=== PATIENT | male | born 1950 | race Caucasian/White ===

== ENCOUNTER 2025-02-22 06:06 | Day surgery (SDC) | payer MEDICARE, OTHER, SELFPAY ==
[2025-02-22] VITALS (16 sets, daily range): BP systolic 113–184; BP diastolic 54–91; BMI 31.7
[2025-02-22 06:56] LABS: Glucose - Point of Care 133 mg/dl (70-99)
[2025-02-22 07:14] LABS: Hematocrit 45.2 % (39.0-52.0); Hemoglobin 15.3 g/dL (13.0-18.0); Mean Corp Hgb Conc. 33.8 g/dL (33.0-37.0); Mean Corpuscular Volume 90.0 fL (80.0-94.0); Red Cell Dist. Width 13.2 % (11.5-14.5)
[2025-02-22 07:46] LABS: ALT (SGPT) 29 U/L (0-50); AST (SGOT) 30 U/L (17-59); Albumin 4.6 g/dl (3.5-5.0); Alkaline Phosphatase 38 U/L (38-126); Blood Urea Nitrogen 53 mg/dl (9-20); Calcium 9.5 mg/dl (8.4-10.2); Carbon Dioxide 22 mmol/L (22-30); Chloride 108 mmol/L (98-107); Estimated Creatinine Clearance 38 ml/min; Glucose 137 mg/dl (70-99); Potassium 4.8 mmol/L (3.5-5.1); Sodium 137 mmol/L (135-145); Total Protein 7.1 g/dl (6.3-8.2); eGFR 39.25
--- NOTE | 2025-02-22 08:20 | ITS.CL.CATH ---
[facility] - Catheterization
Cardiac Catheterization
Procedure Report:
LEFT AND RIGHT HEART CATHETERIZATION
Date of Procedure: February 19, 2025
Referring: Dr. Eddy Quiros
PROCEDURES:
1. Left heart catheterization, coronary angiogram.
2. Right heart catheterization
3. Moderate sedation.
INDICATION: Estrada is a 74-year-old gentleman with past medical history of hypertension, hyperlipidemia, type 2 diabetes mellitus, family history of coronary artery disease who has been having progressive dyspnea on exertion and an abnormal
outpatient stress test and is now being referred for a left and right heart catheterization.
ACCESS: 1. Right radial artery, 6Fr. sheath, under US guidance.
2. Right brachial vein, 6 Yoruba sheath
HEMODYNAMICS : (mmHg)
RA (m) : 12
RV (s/d,m) : 29/, 13
PA (s/d, m) : 29/, 18
PCWP (m) : 20
PA saturation: 76.4% on room air
AO saturation: 95.1% on room air
RA saturation: 72% on room air
Cardiac Output : 8.15 L/min
Cardiac Index : 3.64 L/min/m-2
Systemic vascular resistance: 775 dsc^(-5)
Pulmonary vascular resistance: 0.61 soto unit
AO (s/d) : 115/69
LVEDP : 20
No significant gradient across the aortic valve to suggest aortic stenosis.
CORONARY FINDINGS
Dominance: Left
Left Main Trunk (LMT): Large caliber vessel that gives rise to the LAD and LCx branches. There is eccentric 20 to 30% ostial left main stenosis.
Left Anterior Descending Artery (LAD): Large caliber vessel that gives off 1 major large caliber diagonal branches as it courses along the anterior inter-ventricular groove before wrapping around the cardiac apex. Ostial to proximal LAD has
diffuse tubular 75% stenosis at the level of the diagonal takeoff. D1 is a large-caliber vessel which has a ostial to proximal 90% stenosis. There is 40% stenosis in the midportion.
Left Circumflex Artery (LCx): Large caliber dominant vessel that gives off 1 major obtuse marginal (OM) branch, twomedium caliber left posterolateral branch and a medium caliber left PDA as it courses along the atrio-ventricular (AV) groove.
Ostial to proximal circumflex has a tubular 90% stenosis at the level of the takeoff of a large caliber OM 1 that is high rising. OM1 has ostial to proximal 50% stenosis. Distal left circumflex into RPDA has a 80% stenosis.
Right Coronary Artery (RCA): Small caliber nondominant vessel with a subtotal occlusion in the proximal portion and right to right collaterals.
SEDATION: 37 minutes of procedural sedation was utilized. IV Midazolam and IV Fentanyl were administered. An independent medical scientific liaison was present to assist with and help manage the patient's level of consciousness and physiologic status.
RADIATION SUMMARY: Fluoro Time (min): 4.5, Dose (mGy): 24.8, DAP (Gy.cm2) : 402.66
Closure Device: There were no immediate intra-procedural complications. The sheath was pulled in the laboratory cureman and a vascular-band applied to the right wrist for radial artery hemostasis using the patent hemostasis technique.
CONCLUSIONS
1. Left dominant coronary circulation.
2. Significant multivessel coronary artery disease.
3. Significantly elevated right and left-sided filling pressures with normal cardiac output in the setting of borderline low systemic vascular resistance.
RECOMMENDATIONS
1. Wean radial band per protocol. Monitor right hand perfusion and for bleeding from the radial site following removal of the vascular-band following trans-radial access.
2. Continue aggressive medical therapy and risk factor modification for secondary CAD prevention. Closely follow renal function as an outpatient.
3. Hydrate with normal saline to mitigate the risk of contrast-induced acute kidney injury.
4. CT surgical appointment as an outpatient for consideration for coronary artery bypass grafting.
Copy to: Dr. Eddy Quiros
Arabella Hyde MD, FACC, [facility]
[2025-02-22 08:35] LABS: Glucose - Point of Care 154 mg/dl (70-99)
[2025-02-22] MEDS: NSS 1000 IV (08:36)
[2025-02-22] MEDS: LASIX 20 MG IV (08:39)
[2025-02-22 08:42] LABS: Platelet Count 125 10^3/uL (130-400)
[2025-02-22] MEDS: NORVASC 2.5 MG PO (08:45)
--- NOTE | 2025-02-22 09:27 | PTCARENOTE ---
Tamra Rodríguez, CTNP, at pt bedside speaking to pt and pt's .
== END 2025-02-22 11:05 | disposition home or self-care (01) ==
LOC: CATH 06:06
PROVIDERS: ATTENDING PHYSICIAN Internal Medicine Interventional Cardiology; FAMILY PHYSICIAN Family Medicine; OTHER PHYSICIAN Internal Medicine Cardiovascular Disease
DX: I25.10 Atherosclerotic heart disease of native coronary artery without angina pectoris (principal); R06.09 Other forms of dyspnea; Z82.49 Family history of ischemic heart disease and other diseases of the circulatory system; E11.9 Type 2 diabetes mellitus without complications; E78.5 Hyperlipidemia, unspecified; I10 Essential (primary) hypertension; Z79.82 Long term (current) use of aspirin; Z79.899 Other long term (current) drug therapy; Z79.84 Long term (current) use of oral hypoglycemic drugs
CPT/HCPCS: 80053; 82962; 85027; 93460; 99152; 99153; C1894; Q9967

== ENCOUNTER 2025-03-21 04:52 | Inpatient (IN) | payer MEDICARE, OTHER, SELFPAY ==
[2025-03-13 09:06] VITALS: BMI 31.5
[2025-03-13 09:37] LABS: INR 0.99; PT 13.4 Sec (11.4-14.6)
[2025-03-13 09:39] LABS: Hematocrit 43.7 % (39.0-52.0); Hemoglobin 15.0 g/dL (13.0-18.0); Mean Corp Hgb Conc. 34.3 g/dL (33.0-37.0); Mean Corpuscular Volume 87.4 fL (80.0-94.0); Nucleated Red Blood Cells % 0 % (-); Platelet Count 158 10^3/uL (130-400); Red Cell Dist. Width 13.0 % (11.5-14.5)
[2025-03-13 09:47] LABS: Urine Character Clear (Clear)
[2025-03-13 10:03] LABS: ALT (SGPT) 48 U/L (0-50); AST (SGOT) 36 U/L (17-59); Albumin 5.2 g/dl (3.5-5.0); Alkaline Phosphatase 60 U/L (38-126); Blood Urea Nitrogen 35 mg/dl (9-20); Calcium 10.4 mg/dl (8.4-10.2); Carbon Dioxide 26 mmol/L (22-30); Chloride 99 mmol/L (98-107); Estimated Creatinine Clearance 42 ml/min; Glucose 274 mg/dl (70-99); Potassium 5.3 mmol/L (3.5-5.1); Sodium 136 mmol/L (135-145); Total Protein 8.1 g/dl (6.3-8.2); eGFR 42.04
[2025-03-13 10:37] LABS: Urine Red Blood Cell 0-2 /HPF (0-2); Urine Squamous Cell None seen /LPF (Few); Urine White Cell 0-2 /HPF (0-5)
[2025-03-13 11:50] LABS: Glycohemoglobin (HgbA1c) 7.0 % (4.0-5.6)
--- NOTE | 2025-03-13 16:30 | CM ---
spoke to pt in PAT, he is prev indep, lives with his in a 2 story home with no steps to enter. he denies any dmes. we discussed preop CABG teaching including sternal and driving restrictions, he has the CT Surgery educ book, soap and
instructions, he is agreeable to a f/u visit form the ct transitional care nurses after dc. plan is for cabg 03/16, cm role explained and all questions answered.
[2025-03-21] VITALS (11 sets, daily range): BP systolic 94–183; BP diastolic 64–91; BMI 31.6
[2025-03-21] MEDS: LOPRESSOR 25 MG PO (05:06)
[2025-03-21] MEDS: BACTROBAN 2% OINTMENT 1 APPLIC NASAL ×2 (05:06→22:10)
[2025-03-21] MEDS: PROTONIX 40 MG PO (05:06)
[2025-03-21] MEDS: MAGNESIUM OXIDE 400 MG PO (05:06)
--- NOTE | 2025-03-21 05:30 | PTCARENOTE ---
pt admitted into room 2265, VS and weight obtained. pt confirms 2 showers @ home and NPO since midnight. admission questions and med rec completed. clip prep and CHG cloth bath done. ABO drawn and sent. pre-op meds given.
--- NOTE | 2025-03-21 06:16 | W.CVOR.SURPR ---
CV[facility] Surgeon Immed Pre Op
-
I have examined this patient prior to performance of the scheduled procedure.
The patient's condition is unchanged from the time of the dictated/written History and
Physical and the patient is able to undergo the scheduled procedure.
CABG + LAAE
[2025-03-21 07:57] LABS: Urine Character Clear (Clear)
[2025-03-21 07:59] LABS: ACT+ - POC 107 Seconds (82-134)
--- NOTE | 2025-03-21 09:16 | CM ---
pt in OR today, cm to follow.
[2025-03-21 09:24] LABS: B.E. - POC -3.2 mmol/L; Glucose - POC 222 mg/dl (70-99); HCO3 - POC 23 mmol/L (21-28); Hematocrit - POC 34 % PCV (42-52); Hemodilution- POC Yes; Hemoglobin Calculated - POC 11.7; Ionized Calcium - POC 1.20 mmol/L (1.15-1.33); Lactate - POC 1.63 mmol/L (0.36-0.75); O2 Saturation %Calculated-POC 99.5 % (94-98); PCO2 - POC 42 mmHg (35-48); PO2 - POC 173 mmHg (83-108); POC Comment PRE; Potassium - POC 3.7 mmol/L (3.5-5.1); Sodium - POC 134 mmol/L (136-145); Specimen Type - POC Arterial; pH - POC 7.34 (7.35-7.45)
[2025-03-21 09:53] LABS: B.E. - POC 3.4 mmol/L; Glucose - POC 189 mg/dl (70-99); HCO3 - POC 29 mmol/L (21-28); Hematocrit - POC 32 % PCV (42-52); Hemodilution- POC Yes; Hemoglobin Calculated - POC 10.7; Ionized Calcium - POC 1.06 mmol/L (1.15-1.33); Lactate - POC 1.03 mmol/L (0.36-0.75); O2 Saturation %Calculated-POC 100.0 % (94-98); PCO2 - POC 45 mmHg (35-48); PO2 - POC 425 mmHg (83-108); POC Comment CPB; Potassium - POC 4.1 mmol/L (3.5-5.1); Sodium - POC 135 mmol/L (136-145); Specimen Type - POC Arterial; pH - POC 7.41 (7.35-7.45)
[2025-03-21 10:23] LABS: B.E. - POC 1.3 mmol/L; Glucose - POC 166 mg/dl (70-99); HCO3 - POC 25 mmol/L (21-28); Hematocrit - POC 28 % PCV (42-52); Hemodilution- POC Yes; Hemoglobin Calculated - POC 9.4; Ionized Calcium - POC 1.09 mmol/L (1.15-1.33); Lactate - POC 1.81 mmol/L (0.36-0.75); O2 Saturation %Calculated-POC 99.9 % (94-98); PCO2 - POC 37 mmHg (35-48); PO2 - POC 332 mmHg (83-108); POC Comment CPB; Potassium - POC 4.5 mmol/L (3.5-5.1); Sodium - POC 137 mmol/L (136-145); Specimen Type - POC Arterial; pH - POC 7.44 (7.35-7.45)
[2025-03-21 10:48] LABS: B.E. - POC 1.9 mmol/L; Glucose - POC 143 mg/dl (70-99); HCO3 - POC 26 mmol/L (21-28); Hematocrit - POC 27 % PCV (42-52); Hemodilution- POC Yes; Hemoglobin Calculated - POC 9.1; Ionized Calcium - POC 1.10 mmol/L (1.15-1.33); Lactate - POC 2.08 mmol/L (0.36-0.75); O2 Saturation %Calculated-POC 100.0 % (94-98); PCO2 - POC 35 mmHg (35-48); PO2 - POC 359 mmHg (83-108); POC Comment CPB; Potassium - POC 4.2 mmol/L (3.5-5.1); Sodium - POC 138 mmol/L (136-145); Specimen Type - POC Arterial; pH - POC 7.47 (7.35-7.45)
[2025-03-21 11:14] LABS: B.E. - POC 0.0 mmol/L; Glucose - POC 137 mg/dl (70-99); HCO3 - POC 25 mmol/L (21-28); Hematocrit - POC 29 % PCV (42-52); Hemodilution- POC Yes; Hemoglobin Calculated - POC 9.7; Ionized Calcium - POC 1.05 mmol/L (1.15-1.33); Lactate - POC 2.29 mmol/L (0.36-0.75); O2 Saturation %Calculated-POC 99.9 % (94-98); PCO2 - POC 39 mmHg (35-48); PO2 - POC 329 mmHg (83-108); POC Comment WARM; Potassium - POC 4.5 mmol/L (3.5-5.1); Sodium - POC 142 mmol/L (136-145); Specimen Type - POC Arterial; pH - POC 7.41 (7.35-7.45)
[2025-03-21 11:17] LABS: ACT+ - POC 131 Seconds (82-134)
[2025-03-21 11:50] LABS: B.E. - POC -1.1 mmol/L; Glucose - POC 119 mg/dl (70-99); HCO3 - POC 23 mmol/L (21-28); Hematocrit - POC 28 % PCV (42-52); Hemodilution- POC Yes; Hemoglobin Calculated - POC 9.6; Ionized Calcium - POC 1.29 mmol/L (1.15-1.33); Lactate - POC 2.55 mmol/L (0.36-0.75); O2 Saturation %Calculated-POC 99.9 % (94-98); PCO2 - POC 34 mmHg (35-48); PO2 - POC 336 mmHg (83-108); POC Comment POST; Potassium - POC 3.8 mmol/L (3.5-5.1); Sodium - POC 137 mmol/L (136-145); Specimen Type - POC Arterial; pH - POC 7.44 (7.35-7.45)
[2025-03-21 11:59] LABS: ACT+ - POC > 1003 Seconds (82-134)
[2025-03-21 11:59] LABS: ACT+ - POC > 1003 Seconds (82-134)
[2025-03-21 11:59] LABS: ACT+ - POC > 1003 Seconds (82-134)
[2025-03-21 11:59] LABS: ACT+ - POC > 1003 Seconds (82-134)
[2025-03-21 11:59] LABS: ACT+ - POC > 1003 Seconds (82-134)
--- NOTE | 2025-03-21 12:02 | W.PN.CT.SURG ---
CT Surgery Operative Note
-
CARDIAC SURGERY OPERATIVE REPORT
Preoperative Diagnosis: Multivessel Coronary Artery Disease with Exertional Angina
Postoperative Diagnosis: Same
Procedure(s) Performed:
1. Standard Sternotomy with Aortic and Right Atrial Cannulation
2. Internal Mammary Artery Harvesting, Left
3. Coronary artery bypass grafting x 5 (In situ BANKS to LAD, Ao to RSVG to Diagonal, Ao to RSVG to OM1, and Ao to RSVG to OM2/LPL seq to LPDA)
4. Endoscopic vein harvesting of RLE
5. Transesophageal echocardiography
6. Placement of Temporary Ventricular Pacing Wires
7. Left atrial appendage exclusion [35 mm clip]
Date of Surgery: 03/21/2025
Comorbidities:
1. Multivessel coronary artery disease with exertional angina
2. CKD stage IIIa
3. Hypertension
4. Hyperlipidemia
5. Gout
Attending Surgeon: Berlin Pollard MD, MS
Assistants: Ilda Rowan PA-C (present and necessary to engineer second assistant, endoscopic vein harvest, retraction, suction, exposure, suture management, and wound closure under my direction), Kayla Alcantar MD (did portions of the distal and proximal
anastomoses)
Anesthesiology: Gurwinder Noel MD and Emerita Urbina CRNA
Scrub and Circulating RNs: Armani Joel RN, Javon Reyes RN
Vice President Financial: Lisa Mendoza CCP
Anesthesia: GETA
EBL: per perfusion records
Products: None
CPB Time: 99 minutes
Aortic Cross Clamp Time: 88 minutes
Indication(s) for Procedures: This is a 74-year-old male who has been experiencing worsening shortness of breath on exertion likely is angina equivalent. He had a left heart cath after having an abnormal stress test that demonstrated significant
multivessel coronary disease. Given the disease pattern and his symptoms, he was offered surgical revascularization as first-line treatment. Due to his elevated [id number] score, his left atrial appendage will also be ligated at time of surgery.
Conduit(s) Quality:
BANKS -excellent, skeletonized
RSVG -good, there were some minor varicosities and a small portion that was really thickened and inflamed, this was excluded
Target(s) Quality:
LPDA -small size vessel, did a 1.5 mm probe, but overall had decent flow approximately 20 to 30 cc at a pressure of 80 mmHg. This was done as part of a sequential graft to the LPL branch. Flow down this graft was excellent, flow probe assessment
down this graft was 27 cc a minute mean with a pulse index of 5.5
OM1 -this was a large sized vessel that counted a 2 mm probe, the mean flow across this graft here was 21 cc a minute with a pulse index of 3.5
Diagonal, this is also a very large target, short piece of vein was used here, the mean flow down the graft was 15 cc a minute with a pulse index of 4.5
LAD -very large target that easily accommodated 2.0 mm probe. The mean flow down the graft from the BANKS was 30 cc a minute with a pulse index of 2.4, there is also excellent visual flow in the LAD territory upon removal of the bulldog clamp
Findings: His left ventricular ejection fraction preoperatively was normal at 60 to 65% with no significant regional wall motion abnormalities. Following surgery his EF remained the same at 60-65 with no new regional wall motion abnormalities. The
BANKS was harvested in a skeletonized fashion. Following bypass grafting, test dose cardioplegia was given down each distal and confirmed patency and hemostasis. Each distal was probed both proximally and distally to confirm disease and patency,
respectively. The left atrial appendage was sized with 35 mm clip and found to be totally occlusive postoperatively. There was no debris or thrombus in the left atrial appendage prior to clipping.
Description of Procedure: The patient was taken to the operating room. Their identity and procedure to be performed were verified and they were positioned supine on the operating table. Induction via general anesthesia with endotracheal intubation
was performed and central venous access and arterial monitoring were inserted. A preoperative transesophageal echocardiogram was performed to assess cardiac function and valvular function. The patient was then prepped and draped from chin to feet in
a sterile fashion. A preoperative time-out was performed with all members of the team present. A midline chest incision was performed along with median sternotomy. Simultaneous endoscopic access of the right lower extremity for saphenous vein
harvest was obtained along with administration of an initial 5,000 units of IV heparin. A RulTract sternal retractor was positioned to exposure the left internal mammary bed. The mammary was harvested and found to have good flow. A bulldog clamp was
applied to the distal end of the mammary after dividing it. It was wrapped in a papaverine soaked RayTec and replaced back into the left hemithorax. The RulTract was exchanged for a median sternal retractor. The innominate vein was isolated. Full
heparinization was given (a total of 50,000 units). We created a pericardial well. The aortic cannulation site was chosen where it was soft, pliable, and free of calcium. Cannulation was performed with an arterial cannula in the ascending aorta and
a triple-stage venous cannula through the right atrial appendage. The arterial cannula line had an appropriate bounce and correlating pressures with test dosing. Next, a root vent/antegrade cannula was inserted into the ascending aorta. The ACT was
confirmed to be over 400 and retrograde autologous priming was performed before commencing cardiopulmonary bypass. The pulmonary artery was away from the aorta to facilitate a clamp site. The aortic cross-clamp was placed after decreasing
the flow on the bypass and mean arterial pressure. A total of 1.2L initial dose of antegrade Del-Nido cardioplegia solution was given and planned for re-dosing every 75 minutes as necessary. There was rapid electro-mechanical arrest of the heart at
400 cc of cardioplegia. The left ventricle was observed for distention on echocardiogram and manual palpation. Cold slush was placed into a sponge and topically on the RV while we systemically cooled to 34 degrees centigrade. Once the heart was
fully arrested was rotated medially and the left atrial appendage was ligated with a 35 mm clip.
I positioned the heart to expose the left posterior descending artery. A menominee blade was used to expose the coronary and perform the arteriotomy. Coronary Stafford scissors were used to enlarge the incision. The saphenous vein was trimmed and beveled
to an appropriate size. The distal anastomosis was performed using 7-0 prolene in an end-to-side fashion. Antegrade cardioplegia was administered into the graft. Appropriate hemostasis and flow were confirmed. I then laid this graft in order to
accommodate a sequential to either an OM2 or LPL. The underbelly of the vein graft was incised and enlarged with Stafford scissors. The distal target was prepared in a similar fashion using a Garfield blade. A [id number] anastomosis was then created
with 7-0 Prolene in a running fashion. The distal end of the graft was then occluded with a bulldog and test dose of antegrade was given down the graft into the LPL branch. This had excellent flow and hemostasis. The graft was measured for length
to the aorta and cut. A suitable site on the first obtuse marginal was chosen. We dissected and prepared the distal target in a similar fashion. An end-to-side anastomosis was created with a 7-0 prolene. Antegrade cardioplegia was administered into
the graft. Appropriate hemostasis and flow were confirmed. The graft was measured for length to the aorta and cut. Next the first diagonal vessel was identified and prepared in a similar fashion. A short segment of vein graft was used, the distal
target was prepared in a similar fashion and a end-to-side anastomosis was created 7-0 Prolene. Using the patient's blood drawn from the bypass lines, testing the graft was given with an olive tip and found to have good hemostasis and flow. A
suitable target on the mid left anterior descending was identified. We dissected and prepared the distal target in a similar fashion. We retrieved the BANKS from the chest and created a pericardial opening while being cognizant of the phrenic nerve
to facilitate the course of the mammary. The distal end of the mammary was prepped and beveled to size. We verified orientation and length of the LINDA and found brisk flow. An end-to-side anastomosis was created with a 7-0 prolene. We temporarily
released the bulldog clamp on the mammary to inspect flow. Perfusion to the LAD territory was visualized and hemostasis was confirmed. The bull clamp was replaced on the mammary. The heart was filled and the root was distended with antegrade
cardioplegia to make final assessment of graft length and orientation. We created 3 aortotomies using a #11 blade then a 4.0mm aortic punch. The proximal anastomoses were created in an end-to-side fashion using 6-0 prolene. At the the same time, we
re-warmed to 36.5 degrees centigrade. The bulldog clamp was removed from the mammary. Temporary bipolar ventricular pacing wires were placed on the base of the right ventricle. The patient was placed in a Trendelenburg position and flows on bypass
were lowered. The aortic cross clamp was removed and flows were slowly brought back up. A 30-gauge needle was used to de-air the vein grafts. All bypass grafts were inspected and were free from kinking or twisting. The distal and proximal
anastomoses appeared hemostatic. Once transesophageal echocardiography appeared satisfactory for de-airing, the flows were temporarily lowered for root vent removal. After verifying acceptable parameters, we initiated weaning from cardiopulmonary
bypass. Once we were off cardiopulmonary bypass, the venous cannula was clamped and removed. A test dose of protamine was administered and the patient was monitored for any adverse reaction before resuming protamine. Once half of the protamine dose
was delivered, pump suckers were turned off and the systolic blood pressure was lowered for aortic decannulation. The aortic cannula was removed and pursestrings were tied down. All cannulation sites were oversewn with a 4-0 prolene. The mammary bed
was inspected and hemostasis was confirmed. Once the mediastinum was hemostatic, 19Fr Raúl drain was placed in the left pleural cavity and two 24Fr Raúl drains were placed within the pericardium. The sternum was approximated with 4 #7 single and 3
#8 double stainless steel wires. Fascia was approximated with #1 vicryl suture. The subcutaneous, dermis and epidermis were closed in layers in a running fashion. The skin wound was cleansed and dressed.
All instrument, sponge, and needle counts were confirmed to be correct x 2 at the end of the operation. The patient was transferred to the cardiac intensive care unit in critical but stable condition.
I, Dr. Berlin Pollard, was present, scrubbed for, and performed all critical elements of this procedure.
Berlin Pollard MD, MS
Cardiothoracic Surgeon
[facility]
This operative dictation was created using the leaselock dictation system. Please excuse any grammatical, typographical, or 'sound alike' errors
--- NOTE | 2025-03-21 12:20 | CON.INTV ---
Consultation
Consultation Request
Date/Time Consultation Requested: 03/21/2025 - 112
Date/Time Consultation Performed: 03/21/2025 - 114
Requesting Provider: Claire Singh NP
Performing Provider: Dr. Desir
Reason for Consultation: s/p CABG + ELAA
Medical History
-
Chief Complaint: Elective CABG
History of Present Illness:
74-year-old male with a past medical history of multivessel CAD, hypertension, hyperlipidemia, gout and CKD who presents for elective CABG. Patient known to the CT surgery service with last visit on 03/12/[address] Pollard. Patient's been
experiencing worsening shortness of breath and underwent a left heart catheterization on 02/22/2025 after an abnormal outpatient stress test. This showed multivessel CAD. Surgical revascularization was recommended and he consented to this
procedure. Today, patient underwent CABG x 5 (In situ BANKS to LAD, Ao to RSVG to Diagonal, Ao to RSVG to OM1, and Ao to RSVG to OM2/LPL seq to LPDA) with a left atrial appendage exclusion with 35mm clip. There were no immediate complications and
he was transferred to the CVICU postoperatively for further care. [employer] services now consulted for additional management/recommendations.
When I saw the patient he was resting in bed, intubated on SIMV at 12/600/40%/5 with PIP 23 cmH2O, VTe 556 cc and breathing at 12 breaths/min. Heart rate currently 70, BP via A-line 121/76, BP via NIBP: 119/81 and saturating 98%. He has
mediastinal chest tubes x 2+ left pleural chest tube x 1. Currently on insulin drip at 1.7 units/hr.
PMHx: Hypertension, hyperlipidemia, kidney disease, gout, multivessel CAD
PSHx: Mohs surgery, cardiac cath
Past Medical History
Past Medical History: Other (above as per HPI)
Past Surgical History: Other (above as per HPI)
Social History
Tobacco: Non-smoker
Alcohol: Occasional (Socially)
Drug: None
Personal:
Living: With Family
Family History
Family History: CAD
Allergies / Home Medications
Allergies
Allergy/AdvReac Type Severity Reaction Status Date / Time
ampicillin Allergy Rash Verified 03/12/25 12:28
Home Medications
�Medication �Instructions �Recorded �Confirmed �Last Taken �Type
amlodipine 2.5 mg tablet 2.5 mg PO DAILY #30 tabs 02/22/25 03/21/25 03/13/25 Rx
aspirin 81 mg tablet,delayed 81 mg PO DAILY 02/22/25 03/21/25 03/20/25 History
release
atorvastatin 80 mg tablet (Lipitor) 80 mg PO QPM #30 tabs 02/22/25 03/21/25 03/20/25 Rx
cholecalciferol (vitamin D3) 25 25 mcg PO DAILY 02/22/25 03/21/25 03/13/25 History
mcg (1,000 unit) capsule (Vitamin
D3)
furosemide 20 mg tablet (Lasix) 20 mg PO DAILY #30 tabs 02/22/25 03/21/25 03/20/25 Rx
gabapentin 300 mg capsule 300 mg PO BID 02/22/25 03/21/25 03/20/25 History
glimepiride 1 mg tablet 1 mg PO BID 02/22/25 03/21/25 03/20/25 History
metoprolol succinate 25 mg 25 mg PO DAILY #0 tabs 02/22/25 03/21/25 03/20/25 Rx
tablet,extended release 24 hr
milk thistle 500 mg capsule 1,000 mg PO DAILY 02/22/25 03/21/25 03/13/25 History
nitroglycerin 0.4 mg sublingual 0.4 mg sublingual [id number] PRN 02/22/25 03/21/25 Unknown Rx
tablet chest pain #25 tabs
omeprazole 20 mg tablet,delayed 20 mg PO Q48H 02/22/25 03/21/25 03/20/25 History
release
Review of Systems
-
Unable to Obtain full review of systems at this time due to: Patient Intubation
Vitals / Labs / Diagnostic Testing
Vital Signs
Temp Pulse Resp BP Pulse Ox
98.2 F 75 18 117/66 98
03/21/25 17:03 03/21/25 17:00 03/21/25 17:03 03/21/25 17:00 03/21/25 17:03
Lab Data
03/21/25 15:57
03/21/25 12:18
Laboratory Results
03/21/25
12:18
PT 18.7 H
INR 1.50
APTT 33.0
pH 7.40
pCO2 37
pO2 187 H
HCO3 22.9
O2 Delivery Level
Diagnostic Testing:
Physical Exam
-
HEENT: Normocephalic, Anicteric and Other (ETT in place)
Cardiovascular: S1/S2 and Peripheral Edema (negative)
Respiratory: Wheeze (negative), Rales (negative), Rhonchi (negative), Non-Labored Respirations, Other (Mechanical breath sounds heard bilaterally) and Other (Left pleural chest tube x 1+ mediastinal chest tubes x 2)
GI: Soft, Non Distended, Non Tender and Normal Bowel Sounds
Neurology: Tremors (negative) and Other (Sedated)
Skin: Warm and Dry
General: Respiratory Distress (negative), Comfortable, Fever (negative) and Chills (negative)
Assessment
-
Assessment: 74-year-old male with a past medical history of multivessel CAD, hypertension, hyperlipidemia, gout and CKD who presents for elective CABG. Patient known to the CT surgery service with last visit on 03/12/[address] Pollard. Patient's
been experiencing worsening shortness of breath and underwent a left heart catheterization on 02/22/2025 after an abnormal outpatient stress test. This showed multivessel CAD. Surgical revascularization was recommended and he consented to this
procedure. On 03/21/2025, he underwent CABG x 5 (In situ BANKS to LAD, Ao to RSVG to Diagonal, Ao to RSVG to OM1, and Ao to RSVG to OM2/LPL seq to LPDA) with a left atrial appendage exclusion with 35mm clip. There were no immediate complications and
he was transferred to the CVICU postoperatively for further care. [employer] services now consulted for additional management/recommendations.
Chronic conditions EARLY INTERVENTION SPECIALIST: Hypertension, hyperlipidemia, kidney disease, gout, multivessel CAD
Impression:
#Multivessel CAD with exertional angina s/p CABG x 5 with left atrial appendage exclusion with 35mm clip (POD #0)
#Acute anemia due to above
#Acute thrombocytopenia due to above
#Hyperglycemia
#CKD stage IIIa
#Hypertension
#Gout
#Hyperlipidemia
Plan:
Ventilator settings reviewed
FiO2 will be weaned to maintain SpO2 >90-94%
Minute ventilation will be adjusted
Arterial blood gases will be monitored
Spontaneous breathing trial will be attempted with hopeful extubation after anesthesia/sedation wear off
prn nebulized bronchodilators - not currently bronchospastic
Pulmonary artery catheter parameters will be followed
Pressors/antihypertensive/inotropes/diuretics will be provided as needed
Maintain MAP>65
Replete electrolytes with K>4, Mg>2
Monitor chest tube output (left pleural chest tube x 1+ mediastinal chest tubes x 2)
Monitor hemoglobin
Monitor platelet count and coags
Transfuse blood products as needed to maintain Hb>7g/dL, plt>50k (given post-operative status)
CT surgery managing chest tubes
Monitor blood sugar to maintain euglycemia with goal BG 110-140
Insulin drip per protocol
Aspiration precautions
VAP prevention protocol
DVT prophylaxis
Early nutrition
Early mobilization
Critical care statement: A total of 42 minutes of critical care time was provided for this patient today. This includes management of ventilator, spontaneous breathing trial, arterial blood gases, pressors, of unstable vital signs, evaluation of the
patient at bedside, reviewing the patient's pertinent medical records including radiographs, microbiology, laboratory evaluations, and discussion with primary team and critical care nursing.
[2025-03-21 12:23] LABS: Glucose - Point of Care 128 mg/dl (70-99)
[2025-03-21] MEDS: LR 250 ML IV ×2 (12:30→17:56)
[2025-03-21 12:34] LABS: B.E. -1.6 mmol/L; HCO3 22.9 mmol/L (21-28); O2 Saturation % 99.7 % (94-98); PCO2 37 mmHg (35-48); PO2 187 mmHg (83-108); Potassium 4.1 mMOL/L (3.5-5.1); Sodium 133 mMOL/L (136-145)
--- NOTE | 2025-03-21 12:39 | PTCARENOTE ---
Received pt from [facility] at 1215; pt intubated and sedated; Pupils 2mm and reactive; NSR on monitor and VSS; Epicardial V wires in place and box turned off; RIJ Cordis/SLIC, Left wrist A-line and PIV x1 all lines leveled and zeroed; Levo, Precedex and
Insulin infusing see flow sheet for details; Lungs diminished; ETT 8.0 22 @ lip; SIMV 600/60%/12/5; CT x3 to -2o wall suction no air leak and no crepitus noted; hypoactive bowel sounds; Dukes catheter draining clear yellow urine; palpable radial
pulses and weak DP; no edema; all surgical sites C/D/I; see nursing documentation for further details.
Respiratory at bedside and FiO2 decreased to 40%.
[2025-03-21 12:42] LABS: APTT 33.0 Sec (23.4-35.0); INR 1.50; PT 18.7 Sec (11.4-14.6)
--- NOTE | 2025-03-21 12:52 | W.PN.UPDATE ---
Update Note
Progress Note Update
74-year-old male was electively admitted on 03/17/2025 for CABG due to exertional dyspnea, triple-vessel coronary disease with preserved EF.
IV fluids: 1000
Crystalloid:�
U.O.:� 525
Cell saver:� 225
Blood:� none
Wires:� V-wire
Drips: Insulin, Precedex �
�
NEURO: sedated, pupils +2mm B/L
RESP: #8OT @23cm> 500/60%/14/5. Lungs clear B/L. 2 mediastinal (0cc on arrival) and L pleural (30cc on arrival) chest tubes to -20cm suction. Sanguineous drainage
CV: RRR +S1, S2, no S3, no�rub, no murmur. Dermabond to median sternotomy. RIJ w/Slik
ABD: round, soft, no BS
EXT: no edema, +2/4 DP pulses B/L, no femoral bruit, RLE REID wrap intact; left radial A-line intact
: Dukes with clear yellow urine
�
A/P: POD #0 s/p CABG x 5 (BANKS to LAD, SVG to Diagonal, SVG to OM1, and SVG to OM2/LPL seq to LPDA), Left atrial appendage exclusion [35 mm clip]
Required [place] scope intubation due to limited cervical range of motion
ESTELA: report pending
- wean and extubate
- keep SBP 90-130mmHg
# CAD
- will require ASA, Plavix, statin, beta fermin
# CKD3b
- trend creatinine and U.O
- no NSAIDS
�
# acute surgical blood loss anemia-expected
- trend CBC
�
# T2DM (A1C 7.0)
- insulin infusion x 48h
- consult to diabetes nurse practitioner
- Chol lowering, 1800 tanya diabetic diet
�
# Lumbar spinal stenosis
- resume�home dosing for Gabapentin
# GERD
- change Omeprazole to Pantoprazole while on Clopidogrel
[2025-03-21 12:54] LABS: Hematocrit 30.9 % (39.0-52.0); Hemoglobin 11.0 g/dL (13.0-18.0); Platelet Count 90 10^3/uL (130-400)
[2025-03-21 12:57] LABS: Blood Urea Nitrogen 26 mg/dl (9-20); Estimated Creatinine Clearance 46 ml/min; Glucose 118 mg/dl (70-99); Magnesium 2.5 mg/dl (1.6-2.3)
[2025-03-21 12:59] LABS: Glucose - Point of Care 122 mg/dl (70-99)
--- NOTE | 2025-03-21 13:24 | W.PN.CARDCBS ---
Addendum entered and electronically signed by Santino Sandoval DO 03/21/25 17:58:
I saw and examined the patient.
The [employer]'s note was reviewed and I agree with the note.
Comment:
Plan:
Cont post op CT surgical care
Off pressors
Wean vent as per protocol
Reviewed with nursing.
Compensated cv status.
Original Note:
Today's Communication / Plan
-
continue post op care
in SR
Impression / Plan
-
Primary Marionette Performer: Dr. Eddy Quiros
Assessment:
Multivessel CAD status post CABGx5 In situ BANKS to LAD, Ao to RSVG to Diagonal, Ao to RSVG to OM1, and Ao to RSVG to OM2/LPL seq to LPDA, GENE clip 03/21/25
Hypertension
Hyperlipidemia
Type 2 diabetes
CKD stage IIIA
Gout
Family history of CAD
Echo 02/14/2025: Normal LV function, no significant valvular disease
Plan:
-s/p CABGx5 In situ BANKS to LAD, Ao to RSVG to Diagonal, Ao to RSVG to OM1, and Ao to RSVG to OM2/LPL seq to LPDA, GENE clip 03/21/25
-intubated, sedated
-off pressors. currently receiving IVF. BP stable
-EKG SR with NSSTS
-follow Cr post op, 1.5 03/21
-hgb 11, plts 90K. follow
-prior to admission was on toprol 25mg daily, norvasc 2.5mg daily, lasix 20mg daily. resume post op as able
-continue post op care
-OP follow up with Dr. Quiros upon DC
-d/w nursing, CT surgery SEARCH MARKETING COORDINATOR
Progress Note - Marionette Performer
Subjective
Date of Service: March 21, 2025
intubated, sedated
Objective
Labs:
03/21/25 12:18
Labs
Hgb 11.0 g/dL (13.0-18.0) L 03/21/25 12:18
Hct 30.9 % (39.0-52.0) L 03/21/25 12:18
Plt Count 90 10^3/uL (130-400) L 03/21/25 12:18
PT 18.7 Sec (11.4-14.6) H 03/21/25 12:18
INR 1.50 03/21/25 12:18
APTT 33.0 Sec (23.4-35.0) 03/21/25 12:18
Sodium 136 mmol/L (135-145) 03/13/25 08:57
Potassium 5.3 mmol/L (3.5-5.1) H 03/13/25 08:57
BUN 26 mg/dl (9-20) H 03/21/25 12:18
Creatinine 1.5 mg/dL (0.7-1.3) H 03/21/25 12:18
Glucose 118 mg/dl (70-99) H 03/21/25 12:18
Vital Signs and I&O:
Vital Signs
Temp Pulse Resp BP Pulse Ox
96.2 F L 71 12 113/77 99
03/21/25 13:00 03/21/25 12:56 03/21/25 13:00 03/21/25 12:56 03/21/25 13:00
Vital Signs
Temp Pulse Resp BP Pulse Ox
96.2 F L 71 12 113/77 99
03/21/25 13:00 03/21/25 12:56 03/21/25 13:00 03/21/25 12:56 03/21/25 13:00
Intake & Output
03/19/25 03/20/25 03/21/25 03/22/25
07:59 07:59 07:59 07:59
Intake Total 314.5 / 314.5
Output Total 270 / 270
Balance 44.5 / 44.5
Physical Exam
Physical Exam
GEN: No distress, intubated, sedated
HEENT: supple, anicteric, mmm, eomi
LUNGS: CTA B/L, no wheezes/rales
CV: Reg, S1/S2, no murmur
ABD: soft, ND
EXT: No cyanosis, clubbing, edema
NEURO: sedated
SKIN: Warm, pink, dry. No rash. Sternotomy incision c/d/i. CTs in place
[2025-03-21] MEDS: ANCEF 10 IV ×2 (13:27)
[2025-03-21] MEDS: NOVOLOG FLEXPEN SC ×3 (13:27→16:19)
[2025-03-21] MEDS: NEURONTIN PO ×2 (13:27→19:52)
[2025-03-21] MEDS: TYLENOL PO ×2 (13:28→22:18)
[2025-03-21] MEDS: NSS 500 IV (13:28)
[2025-03-21] MEDS: VITAMIN D3 (cholecalciferol) PO (13:28)
[2025-03-21 14:02] LABS: Glucose - Point of Care 157 mg/dl (70-99)
--- NOTE | 2025-03-21 14:45 | PTCARENOTE ---
CHG bath wipes completed; NSR on monitor and VSS; pt remain intubated and awakes briefly.
--- NOTE | 2025-03-21 14:49 | PN.DE.MGMTRT ---
Insulin Management
- -
03/21/2025: Diabetes Management Consult:
74 year old male with PMH: CAD with MVD, HTN, HLD, T2DM, Gout, CKD stage IIIA. Admitted for CT surgery due to MVD, now POD 0 s/p CABG x5.
Was taking Glimepiride 1mg BID and had been taking Metformin 500mg BID, but it was d/c 'd by PCP. States he has a working glucose monitor and has been testing his blood sugars daily in the morning. A1C 7.0, Cr 1.5, eGFR 44.02
Currently on glycemic protocol, sugars are stable w/o elevations 136-170 requiring 1.5-7 units of insulin/hr.
Cont insulin infusion postoperatively x48 hrs. Will start Farxiga 10 mg daily POD2. Hold Metformin, pt states PCP discontinued it due to CKD.
Discussed with Nurse. Will cont to follow
Diabetes History
- -
Type of Diabetes: 2 requiring insulin
Pre-Admission Diabetes Regimen
03/21/25
12:18
Creatinine 1.5 H
Lab Results
Hemoglobin A1c 7.0 % (4.0-5.6) H 03/13/25 08:57
Insulin Pump Settings
IP Diabetes Regimen
03/21/25 03/21/25 03/21/25
12:18 12:20 12:57
Glucose 118 H
POC Glucose 128 H 122 H
03/21/25
14:01
Glucose
POC Glucose 157 H
Meal type: Lunch
Patient Education
[2025-03-21 15:01] LABS: Glucose - Point of Care 172 mg/dl (70-99)
[2025-03-21] MEDS: OFIRMEV 100 IV ×2 (15:18→23:41)
--- NOTE | 2025-03-21 15:34 | PTCARENOTE ---
Respiratory at bedside and pt placed on CPAP.
[2025-03-21 16:00] LABS: Glucose - Point of Care 161 mg/dl (70-99)
--- NOTE | 2025-03-21 16:00 | PTCARENOTE ---
Pt drowsy, respiratory at bedside and pt placed back on SIMV.
[2025-03-21] MEDS: PACERONE PO ×2 (16:17→22:18)
[2025-03-21 16:20] LABS: Hematocrit 34.1 % (39.0-52.0); Hemoglobin 12.3 g/dL (13.0-18.0); Platelet Count 134 10^3/uL (130-400)
--- NOTE | 2025-03-21 16:31 | PTCARENOTE ---
Respiratory at bedside and Pt placed on CPAP.
[2025-03-21 16:52] LABS: B.E. - POC -0.5 mmol/L; Blood Urea Nitrogen - POC 24 mg/dl (3-120); Chloride - POC 108 mmol/L (96-111); Creatinine - POC 1.69 mg/dl (0.3-1.0); Glucose - POC 171 mg/dl (70-99); HCO3 - POC 22 mmol/L (21-28); Hematocrit - POC 34 % PCV (42-52); Hemodilution- POC No; Hemoglobin Calculated - POC 11.4; Ionized Calcium - POC 1.20 mmol/L (1.15-1.33); Lactate - POC 2.55 mmol/L (0.36-0.75); O2 Saturation %Calculated-POC 99.0 % (94-98); PCO2 - POC 30 mmHg (35-48); PO2 - POC 121 mmHg (83-108); Potassium - POC 3.5 mmol/L (3.5-5.1); Sodium - POC 141 mmol/L (136-145); Specimen Type - POC Arterial; pH - POC 7.48 (7.35-7.45)
--- NOTE | 2025-03-21 16:55 | RESPNOTE ---
patient extubated at this time without complication. 98% on 6L.
[2025-03-21] MEDS: ZOFRAN 4 MG IV (16:58)
--- NOTE | 2025-03-21 17:10 | PTCARENOTE ---
EPOC resulted and reviewed with CTNP; respiratory at bedside and pt extubated to 6LNC at 1655; NSR on monitor and VSS.
[2025-03-21] MEDS: LIPITOR PO (17:32)
[2025-03-21] MEDS: LOW STRENGTH ASPIRIN 81 MG PO (17:55)
[2025-03-21] MEDS: ANCEF 5 IV (19:04)
[2025-03-21] MEDS: ROXICODONE 2.5 MG PO (19:04)
[2025-03-21] MEDS: SENOKOT PO (19:52)
--- NOTE | 2025-03-21 19:55 | PTCARENOTE ---
pt received from previous rn, pt AAOx4, NSR per tele monitor HR 70s. Epicardial V wires in place and box turned off. VSS. +pulses. lung diminished. pox 100% on 6L NC. CTx3 set -20 cm suction no air leak/crepitus/tidaling. +bs, Dukes draining clear
yellow urine. all surgical sites intact. RIJ Cordis/SLIC, Left wrist A-line all lines leveled and zeroed. PIV infusing insulin per glycemic protocol. plan of care discussed and questions encouraged. see nursing documentation for further details.
[2025-03-21 20:35] LABS: Glucose - Point of Care 163 mg/dl (70-99)
[2025-03-21 20:35] LABS: Glucose - Point of Care 168 mg/dl (70-99)
[2025-03-21 20:57] LABS: Glucose - Point of Care 146 mg/dl (70-99)
[2025-03-21 22:05] LABS: Glucose - Point of Care 127 mg/dl (70-99)
--- NOTE | 2025-03-21 23:00 | PTCARENOTE ---
pt received from previous RN, walking ronds done. pt sleeping, VSS. NSR on monitor, HR 70s. SBP 110s. +peripheral pulses. epicardial V wires in place, pacer box off. heart tones clear. no edema noted. RIJ cordis and slic catheter intact w KVOs
infusing. CVP ~ 9. bilateral breath sounds present. POX 100% on 4LNC. CT x3 intact to -20 cm suction, drainage WNL, no air leak present. +BS. Insulin gtt infusing per glycemic protocol. hughes in place, draining CYU, UO adequate. PIV intact and
patent. all surgical sites stable. see worklist for full assessment, VS, and interventions.
[2025-03-21 23:45] LABS: Glucose - Point of Care 128 mg/dl (70-99)
[2025-03-22] VITALS (23 sets, daily range): BP systolic 93–141; BP diastolic 53–126; PULSE 81; O2SAT 96–97; BMI 32.4
[2025-03-22 01:14] LABS: Glucose - Point of Care 118 mg/dl (70-99)
--- NOTE | 2025-03-22 03:15 | PTCARENOTE ---
no acute changes in assessment. VSS. AAOx4. pt c/o sternal incision pain - see MAR for PRN medication administration. NSR on monitor, HR 80s. SBP 120s. POX 97% on 2LNC. CT output and UO WNL. Insulin gtt maintained per glycemic protocol. all surgical
sites stable. AM labs drawn and sent. EKG done.
[2025-03-22 03:17] LABS: Glucose - Point of Care 114 mg/dl (70-99)
[2025-03-22 03:23] LABS: Hematocrit 31.5 % (39.0-52.0); Hemoglobin 11.3 g/dL (13.0-18.0); Mean Corp Hgb Conc. 35.9 g/dL (33.0-37.0); Mean Corpuscular Volume 88.0 fL (80.0-94.0); Platelet Count 115 10^3/uL (130-400); Red Cell Dist. Width 13.1 % (11.5-14.5)
[2025-03-22] MEDS: ANCEF 5 IV ×2 (03:28→10:55)
[2025-03-22] MEDS: DILAUDID 0.5 MG IV (03:28)
[2025-03-22 03:53] LABS: Blood Urea Nitrogen 31 mg/dl (9-20); Calcium 8.7 mg/dl (8.4-10.2); Carbon Dioxide 23 mmol/L (22-30); Chloride 109 mmol/L (98-107); Estimated Creatinine Clearance 40 ml/min; Glucose 116 mg/dl (70-99); Magnesium 2.0 mg/dl (1.6-2.3); Potassium 4.4 mmol/L (3.5-5.1); Sodium 138 mmol/L (135-145); eGFR 42.04
[2025-03-22 05:05] LABS: Glucose - Point of Care 119 mg/dl (70-99)
[2025-03-22] MEDS: ZOFRAN 4 MG IV (05:21)
[2025-03-22] MEDS: TYLENOL PO (05:43)
[2025-03-22 06:13] LABS: Glucose - Point of Care 139 mg/dl (70-99)
[2025-03-22] MEDS: NOVOLIN R INSULIN INFUSION 100 IV (06:18)
[2025-03-22] MEDS: ROXICODONE 5 MG PO ×3 (06:46→23:25)
--- NOTE | 2025-03-22 06:49 | W.PN.CT ---
Today's Communication / Plan
-
-pod #1
-no issues overnight
-drips: insulin only
-CT outputs: 2 meds 80/160, L pleur 40/160 in 12/24 hrs
-delined
-keep Dukes for critical I/O (CKD)
-follow Cr - 1.7 today (1.5 on 03/21, 1.7-1.8 preop)
-continue current meds
-encourage IS, OOB
Assessment / Plan
-
- Mv-CAD with Exertional Angina- s/p CABG x 5 (In situ BANKS to LAD, Ao to RSVG to Diagonal, Ao to RSVG to OM1, and Ao to RSVG to OM2/LPL seq to LPDA); Left atrial appendage exclusion [35 mm clip] by Dr. Pollard on 03/21/25, pod #1
- Intraop ESTELA: LVEF preop was normal at 60 to 65% with no significant regional wma. Following surgery his EF remained the same at 60-65 with no new regional wall motion abnormalities. The left atrial appendage was sized with 35 mm clip and found to
be totally occlusive postoperatively.
- CKD stage IIIb (baseline Cr 1.7-1.8)
- Hypertension
- Hyperlipidemia
- DM II
- GERD
- Class 1 obesity (BMI 32)
- Gout
- DJD/lumbar spinal stenosis
- Acute postop blood loss anemia - stable, no transfusion
- Acute postop thrombocytopenia
- Acute postop atelectasis
- Acute postop hypovolemia with subsequent hypervolemia
- Suspected acute postop pericarditis/ + rub
Discussed patient care with: Nursing and Care Team
Subjective
-
Date of Service: March 22, 2025
Objective Data
-
Lab Results
03/22/25 03:13
03/22/25 03:13
PT 18.7 Sec (11.4-14.6) H 03/21/25 12:18
INR 1.50 03/21/25 12:18
APTT 33.0 Sec (23.4-35.0) 03/21/25 12:18
Vital Signs
Vital Signs
Temp Pulse Resp BP Pulse Ox
98.7 F 79 12 93/63 94
03/22/25 05:00 03/22/25 06:15 03/22/25 05:00 03/22/25 06:05 03/22/25 06:15
CT Intake/Output/Weight
03/21/25 03/21/25 03/22/25
06:59 18:59 06:59
Intake Total 680.0 / 1050.0 370.0 / 1050.0
Output Total 1010 / 1710 700 / 1710
Balance -330.0 / -660.0 -330.0 / -660.0
SaO2: 94
Physical Exam
-
General: Awake and AOx3
Cardiovascular: Regular rate & rhythm, No Murmurs and Rub
Respiratory: Decreased Breath Sounds
Sternum: Stable
Incision: Clean, Dry and Dressing Intact
Extremities: No Edema (1+ DPs b/l)
Abdomen: soft, nondistended, decreased bowel sounds
Data Reviewed
-
Lab Results: Results Reviewed
Medications: Active Meds Reviewed
Chest X-Ray: Report Reviewed and Image Reviewed
ECG: Report Reviewed and Image Reviewed
[2025-03-22 07:01] LABS: Glucose - Point of Care 120 mg/dl (70-99)
--- NOTE | 2025-03-22 07:16 | W.PN.ANS.POP ---
Anesthesia Post Operative
- Anesthesia Post Op Note
Vital Signs Stable-See Nursing Note: Yes
Airway Patent: Yes
Adequate Pain Control: Yes
Change in Mental Status: No
Current Postoperative Nausea & Vomiting: No (note n/v after extubation last night, feels fine now)
Anesthesia Complications: No
General Anesthetic Recall: No
Unplanned Admission: No
Post Op Hydration Adequate: Yes
--- NOTE | 2025-03-22 08:10 | W.PN.INTV ---
Today's Communication / Plan
Recommendations
Up OOB as tolerated
Continue insulin drip per protocol with goal BG 110�140
Cardiac rehab consult
Pain control
Encourage incentive spirometer q1hr while awake
Motorboat Mechanic Helper services will continue to follow along while patient remains in the CVICU
Assessment
-
Assessment: 74-year-old male with a past medical history of multivessel CAD, hypertension, hyperlipidemia, gout and CKD who presents for elective CABG. Patient known to the CT surgery service with last visit on 03/12/[address] Pollard. Patient's
been experiencing worsening shortness of breath and underwent a left heart catheterization on 02/22/2025 after an abnormal outpatient stress test. This showed multivessel CAD. Surgical revascularization was recommended and he consented to this
procedure. On 03/21/2025, he underwent CABG x 5 (In situ BANKS to LAD, Ao to RSVG to Diagonal, Ao to RSVG to OM1, and Ao to RSVG to OM2/LPL seq to LPDA) with a left atrial appendage exclusion with 35mm clip. There were no immediate complications and
he was transferred to the CVICU postoperatively for further care. Motorboat Mechanic Helper services now consulted for additional management/recommendations.
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
Impression:
#Multivessel CAD with exertional angina s/p CABG x 5 with left atrial appendage exclusion with 35mm clip (POD #1)
#Acute anemia due to above
#Acute thrombocytopenia due to above
#Hyperglycemia
#CKD stage IIIa
#Hypertension
#Gout
#Hyperlipidemia
Plan:
Patient successfully extubated to nasal cannula on evening of 03/21/2025, and is now breathing comfortably on room air and saturating 96-97%
Maintain SpO2 >90-94%
prn nebulized bronchodilators - not currently bronchospastic
Encouraged incentive spirometer use q1hr while awake
Pulmonary artery catheter parameters will be followed
Pressors/antihypertensive/inotropes/diuretics will be provided as needed
Maintain MAP>65
Replete electrolytes with K>4, Mg>2
Monitor chest tube output (left pleural chest tube x 1+ mediastinal chest tubes x 2 - pleural chest tube to be removed later this AM)
Monitor hemoglobin
Monitor platelet count and coags
Transfuse blood products as needed to maintain Hb>7g/dL, plt>50k (given post-operative status)
CT surgery managing chest tubes
Monitor blood sugar to maintain euglycemia with goal BG 110-140
Insulin drip per protocol
Aspiration precautions
DVT prophylaxis
Early nutrition
Early mobilization
Critical care statement: A total of 38 minutes of critical care time was provided for this patient today. This includes management of ventilator, spontaneous breathing trial, arterial blood gases, pressors, of unstable vital signs, evaluation of the
patient at bedside, reviewing the patient's pertinent medical records including radiographs, microbiology, laboratory evaluations, and discussion with primary team and critical care nursing.
Subjective Dataa
Subjective Data
Date of Service:
Date of Service: March 22, 2025
Chief Complaint: Motorboat Mechanic Helper Follow Up
Subjective:
Patient was seen and evaluated today at bedside. On insulin drip at 3.5 units/hr. Heart rate 81, BP 101/69, and saturating 96% on room air. Mediastinal chest tubes x 2 and left pleural chest tube x [address]. He is tired and wants to sleep.
Denies chest pain, SOB, fevers or chills.
Review of Systems
General: Other (Negative unless mentioned above)
Objective Data
Data Reviewed
Vital Signs / I&O / Oxygen:
Vital Signs
Temp Pulse Resp BP Pulse Ox
98.4 F 84 20 102/54 96
03/22/25 08:00 03/22/25 08:33 03/22/25 08:00 03/22/25 08:33 03/22/25 08:15
Intake and Output
03/21/25 03/22/25 03/23/25
06:59 06:59 06:59
Intake Total 1050.0 / 1050.0 27.0 / 27.0
Output Total 1710 / 1710 145 / 145
Balance -660.0 / -660.0 -118.0 / -118.0
SaO2 [CPAP] 99
SaO2 [SIMV] 99
SaO2 96
Nasal Cannula flow liters per 2
minute
Physical Exam
General: Respiratory Distress (negative), Comfortable, Chills (negative) and Sweats (negative)
HEENT: Normocephalic and Anicteric
Cardiovascular: S1-S2, Rub (positive) and Peripheral Edema (negative)
Respiratory: Wheeze (negative), Crackles (negative), Rhonchi (negative), Non-Labored Respirations and Chest Tube (Mediastinal chest tubes x 2 + left pleural chest tube x 1)
GI: Soft, Non Distended, Non Tender and Normal Bowel Sounds
Neurology: AO x 3 and Tremors (negative)
Skin: Warm, Dry, Cyanosis (negative) and Jaundice (negative)
Labs/Micro/Reports
Lab Data
03/22/25 03:13
03/22/25 03:13
Laboratory Results
03/21/25
12:18
PT 18.7 H
INR 1.50
APTT 33.0
pH 7.40
pCO2 37
pO2 187 H
HCO3 22.9
O2 Delivery Level
[2025-03-22 08:23] LABS: Glucose - Point of Care 113 mg/dl (70-99)
[2025-03-22] MEDS: BACTROBAN 2% OINTMENT 1 APPLIC NASAL ×2 (08:26→20:27)
[2025-03-22] MEDS: PACERONE 200 MG PO ×3 (08:27→22:32)
[2025-03-22] MEDS: SENOKOT 8.6 MG PO ×2 (08:27→20:27)
[2025-03-22] MEDS: VITAMIN D3 (cholecalciferol) 25 MCG PO (08:27)
[2025-03-22] MEDS: PLAVIX 75 MG PO (08:27)
[2025-03-22] MEDS: PROTONIX 40 MG PO (08:27)
[2025-03-22] MEDS: LOW STRENGTH ASPIRIN 81 MG PO (08:27)
[2025-03-22] MEDS: LIDOCAINE 4% PATCH 1 PATCH TOPICAL (08:28)
[2025-03-22] MEDS: MAGNESIUM OXIDE 400 MG PO ×2 (08:28→20:28)
[2025-03-22] MEDS: NEURONTIN 300 MG PO ×2 (08:28→20:27)
--- NOTE | 2025-03-22 08:32 | PN.DE.MGMTRT ---
Insulin Management
- -
03/22/2025: Diabetes Management Consult:
74 year old male with PMH: CAD with MVD, HTN, HLD, T2DM, Gout, CKD stage IIIA. Admitted for CT surgery, now POD 0 s/p CABG x5.
Was taking Glimepiride 1mg BID and Metformin 500mg BID. A1C 7.0, Cr 1.0, eGFR 44.02
Currently on glycemic protocol, sugars are stable w/o elevations 114-139 requiring 2.3 to 4.5 units of insulin/hr.
Cont insulin infusion until tomorrow.
Will closely follow and reassess in AM for readiness to transition, ideally to his outpatient oral regimen.
Will Start Farxiga 10 mg daily, discussed with pt and he was agreeable. Will resume Glimepiride and Metformin in Am.
Will ask SW to verify coverage for SGLT2.
Discussed with Nurse, will cont to follow.
Diabetes History
- -
Type of Diabetes: 2
Pre-Admission Diabetes Regimen
03/21/25 03/22/25
12:18 03:13
Creatinine 1.5 H 1.7 H
Lab Results
Hemoglobin A1c 7.0 % (4.0-5.6) H 03/13/25 08:57
Insulin Pump Settings
IP Diabetes Regimen
03/21/25 03/21/25 03/21/25
12:18 12:20 12:57
Glucose 118 H
POC Glucose 128 H 122 H
03/21/25 03/21/25 03/21/25
14:01 14:58 15:56
Glucose
POC Glucose 157 H 172 H 161 H
03/21/25 03/21/25 03/21/25
16:51 18:59 20:56
Glucose
POC Glucose 168 H 163 H 146 H
03/21/25 03/21/25 03/22/25
22:03 23:44 01:13
Glucose
POC Glucose 127 H 128 H 118 H
03/22/25 03/22/25 03/22/25
03:13 03:16 05:04
Glucose 116 H
POC Glucose 114 H 119 H
03/22/25 03/22/25 03/22/25
06:12 06:59 08:21
Glucose
POC Glucose 139 H 120 H 113 H
Meal type: Lunch
Patient Education
[2025-03-22] MEDS: LOPRESSOR 12.5 MG PO ×2 (08:33→20:27)
[2025-03-22] MEDS: NOVOLOG FLEXPEN SC (08:35)
--- NOTE | 2025-03-22 08:58 | PTCARENOTE ---
Received pt from fast food shift supervisor RN at 0700; pt AAOX3 and resting comfortably in chair; NSR on monitor and VSS; RIJ Cordis, and PIV x1 patent; Insulin infusing per protocol see flow sheet for details; lungs diminished; IS to 750; CT x3 to -20 wall
suction on air leak and no crepitus noted; hypoactive bowel sounds; Dukes catheter draining clear yellow urine; palpable pulses throughout; trace edema in B/L hands; all surgical sites C/D/I; see nursing documentation for further details.
[2025-03-22 09:21] LABS: Glucose - Point of Care 120 mg/dl (70-99)
--- NOTE | 2025-03-22 10:08 | W.PN.CARDCBS ---
Addendum entered and electronically signed by Grady Lujan MD 03/22/25 11:37:
I saw and examined the patient.
The Fruit Harvester's note was reviewed and I agree with the note.
Comment: Briefly, 74-year-old man past medical history of multivessel CAD who is currently postop day 1 following CABG x 5
Patient was resting comfortably in the CVICU at the time of my evaluation
Extubated yesterday
Not requiring inotrope or pressor support
Appears euvolemic on exam
Maintaining sinus rhythm on review of telemetry
Agree with current cardiac meds�aspirin/Plavix, high intensity statin and beta-fermin
Eventual cardiac rehab
Original Note:
Today's Communication / Plan
-
Continue postop care
In sinus rhythm
Follow creatinine
Cardiac rehab
Impression / Plan
-
Primary Lab Rn: Dr. Eddy Quiros
Assessment:
Multivessel CAD status post CABGx5 In situ BANKS to LAD, Ao to RSVG to Diagonal, Ao to RSVG to OM1, and Ao to RSVG to OM2/LPL seq to LPDA, GENE clip 03/21/25
Hypertension
Hyperlipidemia
Type 2 diabetes
CKD stage IIIA
Gout
Spinal stenosis
Family history of CAD
Echo 02/14/2025: Normal LV function, no significant valvular disease
Plan:
-s/p CABGx5 In situ BANKS to LAD, Ao to RSVG to Diagonal, Ao to RSVG to OM1, and Ao to RSVG to OM2/LPL seq to LPDA, GENE clip 03/21/25
-in SR on review of tele overnight
-with some nausea this AM
-with rub on exam, managing conservatively for now given CKD and as pain controlled. EKG also with mild diffuse ST changes, likely consistent with pericarditis
-Cr 1.7, was ~1.5 prior to admission
-continue asa, plavix. hgb 11.3
-prior to admission was on toprol 25mg daily, norvasc 2.5mg daily, lasix 20mg daily. resume post op as able
-continue post op care
-cardiac rehab. pt reports he may have some physical limitations while working with rehab due to his history of spinal stenosis
-OP follow up with Dr. Quiros upon DC
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
Progress Note - Lab Rn
Subjective
Date of Service: March 22, 2025
Reports feeling tired. Also reports he may have some physical limitations while working with cardiac rehab due to his history of spinal stenosis
Objective
Labs:
03/22/25 03:13
03/22/25 03:13
Labs
Hgb 11.3 g/dL (13.0-18.0) L 03/22/25 03:13
Hct 31.5 % (39.0-52.0) L 03/22/25 03:13
Plt Count 115 10^3/uL (130-400) L 03/22/25 03:13
PT 18.7 Sec (11.4-14.6) H 03/21/25 12:18
INR 1.50 03/21/25 12:18
APTT 33.0 Sec (23.4-35.0) 03/21/25 12:18
Sodium 138 mmol/L (135-145) 03/22/25 03:13
Potassium 4.4 mmol/L (3.5-5.1) 03/22/25 03:13
BUN 31 mg/dl (9-20) H 03/22/25 03:13
Creatinine 1.7 mg/dL (0.7-1.3) H 03/22/25 03:13
Glucose 116 mg/dl (70-99) H 03/22/25 03:13
Vital Signs and I&O:
Vital Signs
Temp Pulse Resp BP Pulse Ox
98.4 F 84 20 102/54 96
03/22/25 08:00 03/22/25 08:33 03/22/25 08:00 03/22/25 08:33 03/22/25 10:02
Vital Signs
Temp Pulse Resp BP Pulse Ox
98.4 F 84 20 102/54 96
03/22/25 08:00 03/22/25 08:33 03/22/25 08:00 03/22/25 08:33 03/22/25 10:02
Intake & Output
03/20/25 03/21/25 03/22/25 03/23/25
07:59 07:59 07:59 07:59
Intake Total 1050.0 / 1063.5 27.0 / 27.0
Output Total 1710 / 1805 145 / 145
Balance -660.0 / -741.5 -118.0 / -118.0
Physical Exam
Physical Exam
GEN: No distress, awake, alert, oriented x3. Sitting in chair
HEENT: supple, anicteric, mmm, EOMI
LUNGS: CTA bilaterally, no wheezes/rales
CV: Reg, S1/S2, no murmur, positive rub
ABD: soft, BS+, NT/ND
EXT: No cyanosis, clubbing. Trace edema of bilateral lower extremity
NEURO: Gross non-focal
SKIN: Warm, pink, dry. No rash. Sternotomy incision clean dry and intact. Chest tubes in place
--- NOTE | 2025-03-22 10:52 | PTCARENOTE ---
Left Pleural Chest Tube removed per CTNP order.
[2025-03-22 10:53] LABS: Glucose - Point of Care 119 mg/dl (70-99)
[2025-03-22] MEDS: NSS IV (11:20)
--- NOTE | 2025-03-22 12:00 | PTCARENOTE ---
Assessment unchanged; NSR on monitor and VSS; pt resting comfortably in bed.
[2025-03-22 13:11] LABS: Glucose - Point of Care 99 mg/dl (70-99)
[2025-03-22] MEDS: FERRLECIT 110 MG IV (13:17)
[2025-03-22] MEDS: TYLENOL 975 MG PO ×2 (13:17→22:32)
[2025-03-22] MEDS: NOVOLOG FLEXPEN 4 UNITS SC ×2 (13:20→18:32)
[2025-03-22 15:09] LABS: Glucose - Point of Care 168 mg/dl (70-99)
[2025-03-22] MEDS: LIPITOR 80 MG PO (16:24)
[2025-03-22 17:09] LABS: Glucose - Point of Care 142 mg/dl (70-99)
--- NOTE | 2025-03-22 17:19 | PTCARENOTE ---
NSR on monitor and VSS; assessment unchanged and pt resting comfortably in chair.
[2025-03-22 19:12] LABS: Glucose - Point of Care 114 mg/dl (70-99)
[2025-03-22] MEDS: REMOVE LIDOCAINE PATCH 1 PATCH REMOVE (20:28)
--- NOTE | 2025-03-22 20:30 | PTCARENOTE ---
Patient received OOB in chair watching television. Patient A+A+Ox3. No neurological deficits noted. No c/o headache, dizziness or lightheadedness. Patient assisted to bed with assist x2. Room air. SpO2 93%. Lungs diminished. No adventitious
breath sounds noted. Two Mediastinal chest tubes - Intact and patent - 20 ml red drainage - No air leak. Chest tube dressing intact. Sinus Rhythm. Heart rate 80's. Blood pressure 105/64 (76). V-Wire insulated. Patient with no c/o chest pain,
pressure or discomfort. Abdomen soft, nontender. Normoactive bowel sounds. No BM. No c/o nausea. No vomiting. No urge to void at this time. Sternal incision intact - Surgical adhesive - Open to air. Right groin puncture site intact -
Ecchymotic. Right lower extremity incision intact. Positive, palpable pulses. Generalized edema. Right I.J. Cordis. Insulin gtt. Assessment as documented.
[2025-03-22 21:08] LABS: Glucose - Point of Care 138 mg/dl (70-99)
--- NOTE | 2025-03-22 22:30 | PTCARENOTE ---
Patient voided 350 ml yellow urine. Patient resting in bed without difficulty. Assessment as documented.
[2025-03-22 23:16] LABS: Glucose - Point of Care 104 mg/dl (70-99)
[2025-03-23] VITALS (25 sets, daily range): BP systolic 90–153; BP diastolic 40–83; PULSE 94; O2SAT 93–100; BMI 32.2
[2025-03-23 01:06] LABS: Glucose - Point of Care 116 mg/dl (70-99)
[2025-03-23 03:06] LABS: Glucose - Point of Care 92 mg/dl (70-99)
--- NOTE | 2025-03-23 03:18 | W.PN.CT ---
Today's Communication / Plan
-
-pod #2
-no significant issues overnight
-low BP 90s-low 100s overnight- consider Midodrine
-CT outputs: 2 meds 95/180 in 12/24 hrs
-follow Cr- 1.9 today (1.7 on 03/22 and 1.7-1.8 preop)
-current meds (ASA, Plavix, Lipitor, Amio, Protonix). Held Lopressor in am for low BP
-encourage IS, OOB
Assessment / Plan
-
- Mv-CAD with Exertional Angina- s/p CABG x 5 (In situ BANKS to LAD, Ao to RSVG to Diagonal, Ao to RSVG to OM1, and Ao to RSVG to OM2/LPL seq to LPDA); Left atrial appendage exclusion [35 mm clip] by Dr. Pollard on 03/21/25, pod #2
- Intraop ESTELA: LVEF preop was normal at 60 to 65% with no significant regional wma. Following surgery his EF remained the same at 60-65 with no new regional wall motion abnormalities. The left atrial appendage was sized with 35 mm clip and found to
be totally occlusive postoperatively.
- CKD stage IIIb (baseline Cr 1.7-1.8)
- Hypertension
- Hyperlipidemia
- DM II
- GERD
- Class 1 obesity (BMI 32)
- Gout
- DJD/lumbar spinal stenosis
- Acute postop blood loss anemia - stable, no transfusion
- Acute postop thrombocytopenia
- Acute postop atelectasis
- Acute postop hypovolemia with subsequent hypervolemia
- Suspected acute postop pericarditis/ + rub
Discussed patient care with: Nursing and Care Team
Subjective
-
Date of Service: March 23, 2025
Objective Data
-
PT 18.7 Sec (11.4-14.6) H 03/21/25 12:18
INR 1.50 03/21/25 12:18
APTT 33.0 Sec (23.4-35.0) 03/21/25 12:18
Vital Signs
Vital Signs
Temp Pulse Resp BP Pulse Ox
98.8 F 83 16 90/60 92
03/23/25 03:00 03/23/25 03:00 03/23/25 03:00 03/23/25 03:00 03/23/25 03:00
CT Intake/Output/Weight
03/22/25 03/22/25 03/23/25
06:59 18:59 06:59
Intake Total 370.0 / 1050.0 95.6 / 696.4 600.8 / 696.4
Output Total 700 / 1710 345 / 770 425 / 770
Balance -330.0 / -660.0 -249.4 / -73.6 175.8 / -73.6
SaO2: 92
Physical Exam
-
General: Awake and AOx3
Cardiovascular: Regular rate & rhythm, No Murmurs and Rub
Respiratory: Decreased Breath Sounds
Sternum: Stable
Incision: Clean, Dry and Dressing Intact
Abdomen: soft, nondistended, decreased bowel sounds
Extremities: No Edema (1+ DPs b/l)
Data Reviewed
-
Lab Results: Results Reviewed
Medications: Active Meds Reviewed
Chest X-Ray: Report Reviewed and Image Reviewed
ECG: Report Reviewed and Image Reviewed
[2025-03-23 03:20] LABS: Hematocrit 28.9 % (39.0-52.0); Hemoglobin 9.9 g/dL (13.0-18.0); Mean Corp Hgb Conc. 34.3 g/dL (33.0-37.0); Mean Corpuscular Volume 90.6 fL (80.0-94.0); Platelet Count 117 10^3/uL (130-400); Red Cell Dist. Width 13.2 % (11.5-14.5)
--- NOTE | 2025-03-23 03:20 | PTCARENOTE ---
Patient sleeping intermittently. Pain management with Roxicodone 5mg PO. AM lab work collected and sent. OOB to chair in AM. Assessment/Interventions as documented.
[2025-03-23 03:42] LABS: Blood Urea Nitrogen 41 mg/dl (9-20); Calcium 8.4 mg/dl (8.4-10.2); Carbon Dioxide 26 mmol/L (22-30); Chloride 102 mmol/L (98-107); Estimated Creatinine Clearance 37 ml/min; Glucose 85 mg/dl (70-99); Magnesium 2.1 mg/dl (1.6-2.3); Potassium 3.9 mmol/L (3.5-5.1); Sodium 133 mmol/L (135-145); eGFR 36.79
[2025-03-23 04:57] LABS: Glucose - Point of Care 107 mg/dl (70-99)
[2025-03-23] MEDS: NSS 500 IV (04:57)
[2025-03-23] MEDS: ROXICODONE 5 MG PO (05:27)
[2025-03-23] MEDS: TYLENOL PO (05:29)
[2025-03-23 07:15] LABS: Glucose - Point of Care 112 mg/dl (70-99)
--- NOTE | 2025-03-23 08:00 | PTCARENOTE ---
pt received from previous RN, oriented, OOB in chair. SR on the monitor, HR 80s. V wire insulated. SBP 110s. palpable pulses, +1 UE and LE edema. pt on RA, 94% POX. lungs diminished in bases. IS encouraged. pt abdomen s/n, denies n/v. +BS, +flatus.
diet tolerated well. voids. 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 R groin puncture intact. RLE incision RICCI, approximated. RIJ Cordis maintained. PIV. insulin gtt running as ordered. see worklist for VS, I&O, and assessment.
[2025-03-23] MEDS: VITAMIN D3 (cholecalciferol) 25 MCG PO (08:02)
[2025-03-23] MEDS: PACERONE 200 MG PO ×3 (08:02→19:38)
[2025-03-23] MEDS: MAGNESIUM OXIDE 400 MG PO ×2 (08:02→19:36)
[2025-03-23] MEDS: PLAVIX 75 MG PO (08:02)
[2025-03-23] MEDS: TOPROL XL 12.5 MG PO (08:02)
[2025-03-23] MEDS: SENOKOT 8.6 MG PO ×2 (08:03→19:36)
[2025-03-23] MEDS: LOW STRENGTH ASPIRIN 81 MG PO (08:03)
[2025-03-23] MEDS: NEURONTIN 300 MG PO ×2 (08:03→19:36)
[2025-03-23] MEDS: LIDOCAINE 4% PATCH 1 PATCH TOPICAL (08:03)
[2025-03-23] MEDS: PROTONIX 40 MG PO (08:03)
[2025-03-23] MEDS: NOVOLOG FLEXPEN 4 UNITS SC ×2 (08:03→12:30)
[2025-03-23] MEDS: BACTROBAN 2% OINTMENT 1 APPLIC NASAL ×2 (08:04→19:37)
--- NOTE | 2025-03-23 08:13 | W.PN.INTV ---
Today's Communication / Plan
Recommendations
Up OOB as tolerated
Continue insulin drip per protocol with goal BG 110�140
Cardiac rehab consult
Pain control
Encourage incentive spirometer q1hr while awake
Salon Coordinator service will continue to follow along while patient remains in the CVICU. Once patient transferred to CVICU�telemetry, we will sign off at that time. Once we sign off, please call pulmonary service if there are any additional questions
or concerns.
Assessment
-
Assessment: 74-year-old male with a past medical history of multivessel CAD, hypertension, hyperlipidemia, gout and CKD who presents for elective CABG. Patient known to the CT surgery service with last visit on 03/12/[address] Pollard. Patient's
been experiencing worsening shortness of breath and underwent a left heart catheterization on 02/22/2025 after an abnormal outpatient stress test. This showed multivessel CAD. Surgical revascularization was recommended and he consented to this
procedure. On 03/21/2025, he underwent CABG x 5 (In situ BANKS to LAD, Ao to RSVG to Diagonal, Ao to RSVG to OM1, and Ao to RSVG to OM2/LPL seq to LPDA) with a left atrial appendage exclusion with 35mm clip. There were no immediate complications and
he was transferred to the CVICU postoperatively for further care. Salon Coordinator services now consulted for additional management/recommendations.
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
Impression:
#Multivessel CAD with exertional angina s/p CABG x 5 with left atrial appendage exclusion with 35mm clip (POD #2)
#Acute anemia due to above
#Acute thrombocytopenia due to above
#Hyperglycemia
#CKD stage IIIa
#Hypertension
#Gout
#Hyperlipidemia
Plan:
Patient successfully extubated to nasal cannula on evening of 03/21/2025, and is now breathing comfortably on room air and saturating 93-94%
Maintain SpO2 >90-94%
prn nebulized bronchodilators - not currently bronchospastic
Encouraged incentive spirometer use q1hr while awake
Pressors/antihypertensive/inotropes/diuretics will be provided as needed
Maintain MAP>65
Replete electrolytes with K>4, Mg>2
Monitor chest tube output (left pleural chest tube x 1 removed on 03/22; mediastinal chest tubes x 2)
Monitor hemoglobin
Monitor platelet count and coags
Transfuse blood products as needed to maintain Hb>7g/dL, plt>50k (given post-operative status)
CT surgery managing chest tubes
Monitor blood sugar to maintain euglycemia with goal BG 110-140
Insulin drip per protocol - to be weaned off later today
Aspiration precautions
DVT prophylaxis
Early nutrition
Early mobilization
Salon Coordinator service will continue to follow along while patient remains in the CVICU. Once patient transferred to CVICU�telemetry, we will sign off at that time. Once we sign off, please call pulmonary service if there are any additional questions
or concerns.
Critical care statement: A total of 36 minutes of critical care time was provided for this patient today. This includes management of ventilator, spontaneous breathing trial, arterial blood gases, pressors, of unstable vital signs, evaluation of the
patient at bedside, reviewing the patient's pertinent medical records including radiographs, microbiology, laboratory evaluations, and discussion with primary team and critical care nursing.
Subjective Dataa
Subjective Data
Date of Service:
Date of Service: March 23, 2025
Chief Complaint: Salon Coordinator Follow Up
Subjective:
Seen and evaluated today at bedside. On insulin drip at 7 units/h. Heart rate 92, BP 124/62 and saturating 94% on room air. Denies chest pain, SOB, RIVAS, nausea, fevers or chills.
Review of Systems
General: Other (Negative unless mentioned above)
Objective Data
Data Reviewed
Vital Signs / I&O / Oxygen:
Vital Signs
Temp Pulse Resp BP Pulse Ox
98.3 F 83 18 116/64 94
03/23/25 08:00 03/23/25 08:02 03/23/25 08:00 03/23/25 08:02 03/23/25 08:00
Intake and Output
03/22/25 03/23/25 03/24/25
06:59 06:59 06:59
Intake Total 1050.0 / 1050.0 720.1 / 720.1 493.5 / 493.5
Output Total 1710 / 1710 1140 / 1140
Balance -660.0 / -660.0 -419.9 / -419.9 473.5 / 473.5
SaO2 [CPAP] 99
SaO2 [SIMV] 99
SaO2 94
Nasal Cannula flow liters per 2
minute
Physical Exam
General: Respiratory Distress (negative), Comfortable, Chills (negative) and Sweats (negative)
HEENT: Normocephalic, Anicteric and Other (R-IJ cordis in place)
Cardiovascular: S1-S2, Rub (positive) and Peripheral Edema (negative)
Respiratory: Wheeze (negative), Crackles (negative), Rhonchi (negative), Non-Labored Respirations and Chest Tube (Mediastinal chest tubes x 2)
GI: Soft, Non Distended, Non Tender and Normal Bowel Sounds
Neurology: AO x 3 and Tremors (negative)
Skin: Warm, Dry, Cyanosis (negative) and Jaundice (negative)
Labs/Micro/Reports
Lab Data
03/23/25 03:00
03/23/25 03:00
--- NOTE | 2025-03-23 08:50 | PN.DE.MGMTRT ---
Insulin Management
- -
03/23/2025: Diabetes Management Follow up:
74 year old male with PMH: CAD with MVD, HTN, HLD, T2DM, Gout, CKD stage IIIA. Admitted for CT surgery.
Was taking Glimepiride 1mg BID and had been taking Metformin 500mg BID, but it was d/c 'd by PCP. States he has a working glucose monitor and has been testing his blood sugars daily in the morning. A1C 7.0, Cr 1.5,-->1.7, eGFR 36.79 today.
Pt awake, alert, oriented, sitting up in chair, offers no complaints, able to discuss diabetes care plan. at bedside, very supportive.
Currently on glycemic protocol, sugars are stable w/o elevations 92 to 116 requiring 0.7 to 3.5 units of insulin/hr.
Will transition off insulin infusion today to his oral agents.
Will start Farxiga 10 mg daily, 1st dose now. Resume Glimepiride 1mg BID
Will ask SW to verify coverage for SGLT2. Discussed with Nurse, will cont to follow.
Discussed close OP follow up with PCP, cardiac rehab and emphasized importance of Diabetes outpatient education class, states they live close to [place] and that she is certain they have an OP DSME program and they will look into ti..
Diabetes History
- -
Type of Diabetes: 2
Pre-Admission Diabetes Regimen
03/23/25
03:00
Creatinine 1.9 H
Lab Results
Hemoglobin A1c 7.0 % (4.0-5.6) H 03/13/25 08:57
Insulin Pump Settings
IP Diabetes Regimen
03/22/25 03/22/25 03/22/25
09:20 10:49 13:09
Glucose
POC Glucose 120 H 119 H 99
03/22/25 03/22/25 03/22/25
15:07 17:08 19:10
Glucose
POC Glucose 168 H 142 H 114 H
03/22/25 03/22/25 03/23/25
21:07 23:15 01:04
Glucose
POC Glucose 138 H 104 H 116 H
03/23/25 03/23/25 03/23/25
03:00 03:03 04:55
Glucose 85
POC Glucose 92 107 H
03/23/25
07:14
Glucose
POC Glucose 112 H
Meal type: Dinner
Meal type: Breakfast
Amount consumed: 55%
Amount consumed: 100%
Patient Education
[2025-03-23 09:04] LABS: Glucose - Point of Care 117 mg/dl (70-99)
--- NOTE | 2025-03-23 09:33 | PTCARENOTE ---
pt ambulated into hallway w/ stand by assist, placed back to bed. WALTER Kaplan at bedside, V wire pulled @~0930. q15min VS per protocol.
--- NOTE | 2025-03-23 10:40 | PTCARENOTE ---
Med CTs dc'd as ordered, dressing c/d/i. pt OOB to chair for lunch.
[2025-03-23 11:14] LABS: Glucose - Point of Care 180 mg/dl (70-99)
--- NOTE | 2025-03-23 11:45 | W.PN.CARDCBS ---
Addendum entered and electronically signed by Grady Lujan MD 03/23/25 14:06:
I saw and examined the patient.
The Superintendent Warehouse's note was reviewed and I agree with the note.
Comment: Briefly, 74-year-old man past medical history of multivessel CAD who is currently postop day 1 following CABG x 5
Patient was resting comfortably out of bed to chair in the CVICU at the time of my evaluation
Not requiring inotrope or pressor support
Chest tubes have been removed
Breathing is comfortable on room air
Appears euvolemic on exam
Maintaining sinus rhythm on review of telemetry
Agree with current cardiac meds�aspirin/Plavix, high intensity statin and beta-fermin
Eventual cardiac rehab
Discussed with patient's family at bedside
Original Note:
Today's Communication / Plan
-
continue post op care
in SR
diurese. follow Cr
Impression / Plan
-
Primary Practice Clinician: Dr. Eddy Quiros
Assessment:
Multivessel CAD status post CABGx5 In situ BANKS to LAD, Ao to RSVG to Diagonal, Ao to RSVG to OM1, and Ao to RSVG to OM2/LPL seq to LPDA, GENE clip 03/21/25
Hypertension
Hyperlipidemia
Type 2 diabetes
CKD stage IIIA
Gout
Spinal stenosis
Family history of CAD
Echo 02/14/2025: Normal LV function, no significant valvular disease
Plan:
-s/p CABGx5 In situ BANKS to LAD, Ao to RSVG to Diagonal, Ao to RSVG to OM1, and Ao to RSVG to OM2/LPL seq to LPDA, GENE clip 03/21/25
-in SR on review of tele overnight. continue amio, toprol
-CTs removed this AM
-Cr 1.9, follow post op. baseline ~1.5
-continue asa, plavix. hgb 9.9
-for lasix today and weight up from preop
-prior to admission was on toprol 25mg daily, norvasc 2.5mg daily, lasix 20mg daily. resume post op as able
-continue post op care
-cardiac rehab. pt reports he may have some physical limitations while working with rehab due to his history of spinal stenosis
-OP follow up with Dr. Quiros upon DC
-d/w nursing
Progress Note - Practice Clinician
Subjective
Date of Service: March 23, 2025
reports occasional incisional burning
Objective
Labs:
03/23/25 03:00
03/23/25 03:00
Labs
Hgb 9.9 g/dL (13.0-18.0) L 03/23/25 03:00
Hct 28.9 % (39.0-52.0) L 03/23/25 03:00
Plt Count 117 10^3/uL (130-400) L 03/23/25 03:00
PT 18.7 Sec (11.4-14.6) H 03/21/25 12:18
INR 1.50 03/21/25 12:18
APTT 33.0 Sec (23.4-35.0) 03/21/25 12:18
Sodium 133 mmol/L (135-145) L 03/23/25 03:00
Potassium 3.9 mmol/L (3.5-5.1) 03/23/25 03:00
BUN 41 mg/dl (9-20) H 03/23/25 03:00
Creatinine 1.9 mg/dL (0.7-1.3) H 03/23/25 03:00
Glucose 85 mg/dl (70-99) 03/23/25 03:00
Vital Signs and I&O:
Vital Signs
Temp Pulse Resp BP Pulse Ox
98.1 F 92 18 132/68 96
03/23/25 11:19 03/23/25 11:30 03/23/25 11:19 03/23/25 11:00 03/23/25 11:30
Vital Signs
Temp Pulse Resp BP Pulse Ox
98.1 F 92 18 132/68 96
03/23/25 11:19 03/23/25 11:30 03/23/25 11:19 03/23/25 11:00 03/23/25 11:30
Intake & Output
03/21/25 03/22/25 03/23/25 03/24/25
07:59 07:59 07:59 07:59
Intake Total 1050.0 / 1063.5 720.1 / 1213.6 534.0 / 534.0
Output Total 1710 / 1805 1140 / 1160 330 / 330
Balance -660.0 / -741.5 -419.9 / 53.6 204.0 / 204.0
Physical Exam
Physical Exam
GEN: No distress, awake, alert, oriented x3. Sitting in chair
HEENT: supple, anicteric, mmm, EOMI
LUNGS: CTA bilaterally, no wheezes/rales
CV: Reg, S1/S2, no murmur, positive rub
ABD: soft, BS+, NT/ND
EXT: No cyanosis, clubbing. 1+ edema of bilateral lower extremity
NEURO: Gross non-focal
SKIN: Warm, pink, dry. No rash. Sternotomy incision clean dry and intact.
--- NOTE | 2025-03-23 12:30 | PTCARENOTE ---
pt VSS, no changes in assessment. no c/o pain. IS encouraged. at bedside. voiding in urinal. pt ambulated in hallway w/ stand by assist.
--- NOTE | 2025-03-23 12:30 | PTCARENOTE ---
Addendum entered by Che Cisneros RN 03/23/25 14:24:
insulin gtt dc'd per Surekha Douse DIRECTOR OF INSTITUTIONAL GIVING. pt placed back to bed per request for nap.
Original Note:
pt VSS, no changes in assessment. no c/o pain. IS encouraged. at bedside. voiding in urinal. pt ambulated in hallway w/ stand by assist.
[2025-03-23] MEDS: FARXIGA 10 MG PO (12:45)
[2025-03-23] MEDS: LASIX 40 MG IV (12:45)
[2025-03-23 13:28] LABS: Glucose - Point of Care 177 mg/dl (70-99)
[2025-03-23] MEDS: TYLENOL 975 MG PO ×2 (13:28→19:34)
[2025-03-23] MEDS: FERRLECIT 110 MG IV (13:28)
[2025-03-23 13:50] LABS: Glucose - Point of Care 148 mg/dl (70-99)
--- NOTE | 2025-03-23 16:05 | PTCARENOTE ---
pt VSS, no changes in assessment. voiding in urinal. resting between care.
[2025-03-23] MEDS: LIPITOR 80 MG PO (16:13)
[2025-03-23] MEDS: NOVOLOG FLEXPEN-LOW RESISTANCE 2 UNITS SC (17:06)
[2025-03-23] MEDS: AMARYL 1 MG PO (17:06)
[2025-03-23 17:10] LABS: Glucose - Point of Care 223 mg/dl (70-99)
[2025-03-23] MEDS: TOPROL XL 25 MG PO (17:31)
[2025-03-23] MEDS: REMOVE LIDOCAINE PATCH 1 PATCH REMOVE (19:37)
[2025-03-23 19:44] LABS: Glucose - Point of Care 232 mg/dl (70-99)
--- NOTE | 2025-03-23 20:00 | PTCARENOTE ---
assumed care of patient @ 1900. received pt sitting in chair, Aox3. VSS on RA. mild c/o pain 08/07, states much improved since chest tubes d/cd. SR HR 80s, trace edema to hands, +1 to feet. Lungs clear, audible throughout. + gas, no BM yet. Voiding
clear yellow urine in toilet or urinal. Sternum RICCI, CT dressing CDI, R groin and R knee CDI DIRECTOR GRAPHICS. R IJ cordis with KVO, R hand 18 both patent. assisted pt back to bed with steady gait. now resting comfortably in bed with call romero within reach.
[2025-03-24] VITALS (11 sets, daily range): BP systolic 80–156; BP diastolic 47–74; PULSE 76; O2SAT 98–100; BMI 31.8
--- NOTE | 2025-03-24 02:28 | PTCARENOTE ---
pt resting comfortably, no change in assessment .
[2025-03-24 05:05] LABS: Hematocrit 28.7 % (39.0-52.0); Hemoglobin 10.0 g/dL (13.0-18.0); Mean Corp Hgb Conc. 34.8 g/dL (33.0-37.0); Mean Corpuscular Volume 90.3 fL (80.0-94.0); Platelet Count 105 10^3/uL (130-400); Red Cell Dist. Width 13.0 % (11.5-14.5)
--- NOTE | 2025-03-24 05:21 | W.PN.CT ---
Addendum entered and electronically signed by Johan Méndez MD 03/24/25 09:15:
I saw and examined the patient.
The PA's note was reviewed and I agree with the note.
Comment:
POD#3 s/p CABG x 5, ELAA
No major overnight events. AVSS. Sinus. RA. No gtts. No drains. UO: spontaneous, adequate. Tolerating PO. Neuro: intact
CXR: clear
- Creat 1.7 (baseline), creatine 2.0 today from 1.9 yesterday - diuresis today
- ASA/plavix, BB, statin, lasix, amio
- OOB/IS/ambulate
- D/C planning for 1-2 days
Original Note:
Today's Communication / Plan
-
-pod #3
-no significant issues overnight
-wires and 2M CT out yesterday
-BB increased, tolerated
-current meds (ASA, Plavix, Lipitor, Amio, Protonix).
-encourage IS, OOB
Assessment / Plan
-
- Mv-CAD with Exertional Angina- s/p CABG x 5 (In situ BANKS to LAD, Ao to RSVG to Diagonal, Ao to RSVG to OM1, and Ao to RSVG to OM2/LPL seq to LPDA); Left atrial appendage exclusion [35 mm clip] by Dr. Pollard on 03/21/25, pod #3
- Intraop ESTELA: LVEF preop was normal at 60 to 65% with no significant regional wma. Following surgery his EF remained the same at 60-65 with no new regional wall motion abnormalities. The left atrial appendage was sized with 35 mm clip and found to
be totally occlusive postoperatively.
- CKD stage IIIb (baseline Cr 1.7-1.8)
- Hypertension
- Hyperlipidemia
- DM II
- GERD
- Class 1 obesity (BMI 32)
- Gout
- DJD/lumbar spinal stenosis
- Acute postop blood loss anemia - stable, no transfusion
- Acute postop thrombocytopenia
- Acute postop atelectasis
- Acute postop hypovolemia with subsequent hypervolemia
- Suspected acute postop pericarditis/ + rub
Subjective
-
Date of Service: March 24, 2025
Objective Data
-
Lab Results
03/24/25 04:57
PT 18.7 Sec (11.4-14.6) H 03/21/25 12:18
INR 1.50 03/21/25 12:18
APTT 33.0 Sec (23.4-35.0) 03/21/25 12:18
Vital Signs
Vital Signs
Temp Pulse Resp BP Pulse Ox
98.9 F 72 16 110/59 94
03/24/25 00:00 03/24/25 02:15 03/24/25 00:00 03/24/25 00:01 03/24/25 00:01
CT Intake/Output/Weight
03/23/25 03/23/25 03/24/25
06:59 18:59 06:59
Intake Total 624.5 / 720.1 735.0 / 795.0 60 / 795.0
Output Total 795 / 1140 2255 / 2655 400 / 2655
Balance -170.5 / -419.9 -1520.0 / -1860.0 -340 / -1860.0
SaO2: 94
Physical Exam
-
General: Awake, Oriented and AOx3
Cardiovascular: Regular rate & rhythm and No Murmurs
Respiratory: Clear and Equal
Sternum: Stable
Incision: Clean, Dry and Intact
Extremities: No Edema
Data Reviewed
-
Lab Results: Results Reviewed
Medications: Active Meds Reviewed
Chest X-Ray: Report Reviewed
ECG: Report Reviewed
[2025-03-24 05:34] LABS: Blood Urea Nitrogen 47 mg/dl (9-20); Calcium 8.5 mg/dl (8.4-10.2); Carbon Dioxide 27 mmol/L (22-30); Chloride 103 mmol/L (98-107); Estimated Creatinine Clearance 36 ml/min; Glucose 149 mg/dl (70-99); Magnesium 2.1 mg/dl (1.6-2.3); Potassium 4.4 mmol/L (3.5-5.1); Sodium 134 mmol/L (135-145); eGFR 34.59
--- NOTE | 2025-03-24 05:59 | PTCARENOTE ---
labs drawn and sent, cordis d/cd per order. pt resting comfortably in bed with call romero within reach .
[2025-03-24] MEDS: TYLENOL 975 MG PO ×2 (06:37→19:42)
[2025-03-24 08:07] LABS: Glucose - Point of Care 198 mg/dl (70-99)
[2025-03-24] MEDS: NOVOLOG FLEXPEN-LOW RESISTANCE 300 UNITS SC (08:17)
[2025-03-24] MEDS: FARXIGA 10 MG PO (08:18)
[2025-03-24] MEDS: NEURONTIN 300 MG PO ×2 (08:18→19:41)
[2025-03-24] MEDS: PACERONE 200 MG PO ×3 (08:18→19:43)
[2025-03-24] MEDS: TOPROL XL 50 MG PO (08:18)
[2025-03-24] MEDS: PLAVIX 75 MG PO (08:19)
[2025-03-24] MEDS: AMARYL 1 MG PO ×2 (08:19→16:45)
[2025-03-24] MEDS: PROTONIX 40 MG PO (08:19)
[2025-03-24] MEDS: MAGNESIUM OXIDE 400 MG PO ×2 (08:19→19:42)
[2025-03-24] MEDS: VITAMIN D3 (cholecalciferol) 25 MCG PO (08:19)
[2025-03-24] MEDS: SENOKOT 8.6 MG PO ×2 (08:19→19:41)
[2025-03-24] MEDS: LOW STRENGTH ASPIRIN 81 MG PO (08:19)
[2025-03-24] MEDS: KCL 20 MEQ PO (08:19)
[2025-03-24] MEDS: BACTROBAN 2% OINTMENT 1 APPLIC NASAL ×2 (08:23→19:43)
[2025-03-24] MEDS: LIDOCAINE 4% PATCH TOPICAL (08:23)
[2025-03-24] MEDS: LASIX 40 MG IV ×2 (09:24→16:47)
[2025-03-24 13:22] LABS: Glucose - Point of Care 250 mg/dl (70-99)
[2025-03-24] MEDS: NSS IV (13:22)
[2025-03-24] MEDS: NOVOLOG FLEXPEN-LOW RESISTANCE 3 UNITS SC (13:22)
[2025-03-24] MEDS: FERRLECIT 110 MG IV (14:04)
[2025-03-24] MEDS: TYLENOL PO (16:37)
[2025-03-24] MEDS: FLEXBUMIN 50 IV (16:45)
[2025-03-24 18:03] LABS: Glucose - Point of Care 149 mg/dl (70-99)
[2025-03-24] MEDS: NOVOLOG FLEXPEN-LOW RESISTANCE SC (18:25)
[2025-03-24] MEDS: LIPITOR 80 MG PO (18:27)
[2025-03-24 19:50] LABS: Glucose - Point of Care 202 mg/dl (70-99)
[2025-03-24] MEDS: REMOVE LIDOCAINE PATCH REMOVE (19:50)
--- NOTE | 2025-03-24 20:59 | PTCARENOTE ---
assumed care of patient @ 1900. received pt sitting in chair, Aox3. VSS on RA. mild c/o pain 2/. SR HR 80s, trace edema to hands, +1 to feet. Lungs clear, audible throughout. + gas, no BM yet. Voiding clear yellow urine in toilet or urinal.
Sternum RICCI, CT dressing CDI, R groin and R knee CDI RICCI. R hand 18 assisted pt back to bed with steady gait. now resting comfortably in bed with call romero within reach.
[2025-03-24] MEDS: ROXICODONE 5 MG PO (21:37)
--- NOTE | 2025-03-25 04:00 | PTCARENOTE ---
labs drawn and sent, pt resting comfortably in bed, no change in assessment .
[2025-03-25 04:50] VITALS: BP 132/67
[2025-03-25 05:15] LABS: Hematocrit 33.2 % (39.0-52.0); Hemoglobin 11.4 g/dL (13.0-18.0); Mean Corp Hgb Conc. 34.3 g/dL (33.0-37.0); Mean Corpuscular Volume 89.5 fL (80.0-94.0); Platelet Count 143 10^3/uL (130-400); Red Cell Dist. Width 13.2 % (11.5-14.5)
[2025-03-25 05:33] LABS: Blood Urea Nitrogen 53 mg/dl (9-20); Calcium 9.0 mg/dl (8.4-10.2); Carbon Dioxide 30 mmol/L (22-30); Chloride 101 mmol/L (98-107); Estimated Creatinine Clearance 32 ml/min; Glucose 122 mg/dl (70-99); Magnesium 2.3 mg/dl (1.6-2.3); Potassium 4.0 mmol/L (3.5-5.1); Sodium 136 mmol/L (135-145); eGFR 30.85
--- NOTE | 2025-03-25 05:43 | W.PN.CT ---
Addendum entered and electronically signed by Johan Méndez MD 03/25/25 09:21:
I saw and examined the patient.
The PA's note was reviewed and I agree with the note.
Comment:
POD#4
Creat 2.2 from 2.0; 3L of UO yesterday - check creat later this afternoon, if creat continues in increase, will consult nephrology - hopefully this represents plateau - if creat stable this afternoon, OK for D/C w/ output labs/follow-up (Wednesday)
ASA/plavix, lipitor, BB, no need for home amio
OOB/IS/ambulate
Original Note:
Today's Communication / Plan
-
-pod #4
-no significant issues overnight
-continued diuresis, SCr still uptrending (1.7 base, now up to 2.2), UOP 600/3000 cc out in 12/24 hrs
-BB increased, tolerated
-current meds (ASA, Plavix, Lipitor, Amio, Protonix).
-encourage IS, OOB
Assessment / Plan
-
- Mv-CAD with Exertional Angina- s/p CABG x 5 (In situ BANKS to LAD, Ao to RSVG to Diagonal, Ao to RSVG to OM1, and Ao to RSVG to OM2/LPL seq to LPDA); Left atrial appendage exclusion [35 mm clip] by Dr. Pollard on 03/21/25, pod #4
- Intraop ESTELA: LVEF preop was normal at 60 to 65% with no significant regional wma. Following surgery his EF remained the same at 60-65 with no new regional wall motion abnormalities. The left atrial appendage was sized with 35 mm clip and found to
be totally occlusive postoperatively.
- CKD stage IIIb (baseline Cr 1.7-1.8)
- Hypertension
- Hyperlipidemia
- DM II
- GERD
- Class 1 obesity (BMI 32)
- Gout
- DJD/lumbar spinal stenosis
- Acute postop blood loss anemia - stable, no transfusion
- Acute postop thrombocytopenia
- Acute postop atelectasis
- DARIO on CKD
- Acute postop hypovolemia with subsequent hypervolemia
- Suspected acute postop pericarditis/ + rub
Subjective
-
Date of Service: March 25, 2025
Objective Data
-
Lab Results
03/25/25 05:06
03/25/25 05:06
PT 18.7 Sec (11.4-14.6) H 03/21/25 12:18
INR 1.50 03/21/25 12:18
APTT 33.0 Sec (23.4-35.0) 03/21/25 12:18
Vital Signs
Vital Signs
Temp Pulse Resp BP Pulse Ox
97.9 F 63 16 145/67 95
03/24/25 20:00 03/25/25 03:45 03/25/25 00:00 03/24/25 23:56 03/25/25 00:00
CT Intake/Output/Weight
03/24/25 03/24/25 03/25/25
06:59 18:59 06:59
Intake Total 100 / 835.0
Output Total 700 / 2955 2400 / 3000 600 / 3000
Balance -600 / -2120.0 -2400 / -3000 -600 / -3000
SaO2: 95
Physical Exam
-
General: Awake, Oriented and AOx3
Cardiovascular: Regular rate & rhythm, No Murmurs and No Rub
Respiratory: Clear and Equal
Sternum: Stable
Incision: Clean, Dry and Intact
Extremities: No Edema and No Erythema
Data Reviewed
-
Lab Results: Results Reviewed
Medications: Active Meds Reviewed
Chest X-Ray: Report Reviewed
ECG: Report Reviewed
[2025-03-25 06:00] VITALS: BMI 30.8
[2025-03-25] MEDS: TYLENOL PO (08:06)
[2025-03-25] MEDS: MAGNESIUM OXIDE 400 MG PO (09:10)
[2025-03-25] MEDS: NEURONTIN 300 MG PO (09:10)
[2025-03-25] MEDS: SENOKOT 8.6 MG PO (09:10)
[2025-03-25] MEDS: PROTONIX 40 MG PO (09:10)
[2025-03-25] MEDS: PACERONE 200 MG PO (09:10)
[2025-03-25] MEDS: PLAVIX 75 MG PO (09:10)
[2025-03-25] MEDS: BACTROBAN 2% OINTMENT 1 APPLIC NASAL (09:10)
[2025-03-25] MEDS: LOW STRENGTH ASPIRIN 81 MG PO (09:10)
[2025-03-25] MEDS: AMARYL 1 MG PO (09:10)
[2025-03-25] MEDS: TOPROL XL 50 MG PO (09:10)
[2025-03-25] MEDS: VITAMIN D3 (cholecalciferol) 25 MCG PO (09:10)
[2025-03-25] MEDS: KCL 20 MEQ PO (09:10)
[2025-03-25] MEDS: FARXIGA 10 MG PO (09:10)
[2025-03-25 09:25] LABS: Glucose - Point of Care 304 mg/dl (70-99)
[2025-03-25 09:32] VITALS: BP 111/78
[2025-03-25] MEDS: NOVOLOG FLEXPEN-LOW RESISTANCE 4 UNITS SC (10:47)
[2025-03-25] MEDS: LIDOCAINE 4% PATCH TOPICAL (10:53)
[2025-03-25] MEDS: NSS IV (10:55)
[2025-03-25 12:02] LABS: Glucose - Point of Care 200 mg/dl (70-99)
[2025-03-25] MEDS: NOVOLOG FLEXPEN-LOW RESISTANCE 2 UNITS SC (12:02)
[2025-03-25 13:30] LABS: Blood Urea Nitrogen 53 mg/dl (9-20); Calcium 9.1 mg/dl (8.4-10.2); Carbon Dioxide 27 mmol/L (22-30); Chloride 98 mmol/L (98-107); Estimated Creatinine Clearance 32 ml/min; Glucose 201 mg/dl (70-99); Potassium 4.5 mmol/L (3.5-5.1); Sodium 133 mmol/L (135-145); eGFR 30.85
--- NOTE | 2025-03-25 14:02 | W.DCSUMMARY ---
Discharge Summary
Discharge Data
Date of Admission: 03/21/25
Date of Discharge: 03/25/25
Total time spent discharging patient (in min): 45
-
Pending Results: No
Hospital Course
Primary care physician:
Dr. Sejal Casas
Outpatient laborer tin can:
Dr. back
Inpatient consultants:
DCA, casualty underwriter, DM management liquid yeast supervisor
Procedures:
1. Coronary artery bypass grafting x 5 (In situ BANKS to LAD, Ao to RSVG to Diagonal, Ao to RSVG to OM1, and Ao to RSVG to OM2/LPL seq to LPDA)
Primary Diagnosis:
1. 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
Secondary Diagnoses:
1. CKD stage IIIa
2. post-operative fluid overload
3. Hypertension
4. Hyperlipidemia
5. Gout
6. Diabetes mellitus Type II
7. post-op DARIO
8. GERD
9. Obesity
HPI: 74-year-old male who has been experiencing worsening shortness of breath on exertion likely is angina equivalent. He had a left heart cath after having an abnormal stress test that demonstrated significant multivessel coronary disease.
Hospital course: This patient presented electively on 03/21 for a CABG with Dr. Pollard. Postoperatively he returned to the CVICU on Levophed, insulin, and Precedex infusions. Patient received 500 cc of lactated Ringer's and Levophed was weaned off.
Precedex was weaned off and patient was extubated by 1700. On 03/22 postoperative day 1 patient's left pleural chest tube was removed without issue. Dukes catheter and arterial line was removed. He was started on a low-dose beta-fermin on 03/23
postoperative day 2, patient's epicardial wires were pulled along with mediastinal chest tubes. He was diuresed with 40 mg of IV Lasix. Beta-blockers were increased due to blood pressures and heart rate. On 03/24 postoperative day 3 patient's
creatinine was noted to be 2.0 from 1.9. He was diuresed with 40 mg of twice daily Lasix. With diuretics patient diuresed over 3 L. On 03/25 postoperative day 4 patient's creatinine peaked at 2.2. With diuresis patient's weight and edema came
down significantly. Patient was deemed stable for discharge home with follow-up BMP in 2 days. He was educated that his glimepiride was on hold due to his elevated creatinine and he expressed understanding.
Home medication changes:
see below
Discharge Plan
-
Patient Disposition: Home (Routine Discharge)
Discharge Diagnosis/Procedures: CABG x 5 (In situ BANKS to LAD, Ao to RSVG to Diagonal, Ao to RSVG to OM1, and Ao to RSVG to OM2/LPL seq to LPDA); Left atrial appendage exclusion [35 mm clip] by Dr. Pollard on 03/21/25
Condition: Good
Diet: 2 Gram Sodium, Diabetic, Carb Controlled and Restrict fluids to 64 oz
Activity: No strenuous activity
Driving Restrictions: Not until seen by your Dr
Bathing Restrictions: OK to Shower
Blood Work: BMP on wednesday with results sent to CT office and Dr. Mathews
Other Services: Cardiac Rehab
Specialty Instructions: Weigh Daily- Call MD for wt gain/loss 3 lbs overnight/5 lbs in 1 week
Activity Restrictions/Additional Instructions:
ACTIVITY:
-No strenuous activity: no heavy lifting, pushing, pulling anything over 15 pounds for one month
-continue to use stairs as tolerated
DRIVING RESTRICTIONS:
-No driving for one month or until approved by your surgeon
WOUND CARE:
-Shower daily. Use soap & water.
-No lotions, creams or powders on incision area.
DIET:
-continue a low fat/low cholesterol diet.
-IF you are diabetic, continue carb controlled diet.
CARDIAC REHAB:
-Please make appointment to start in 5-6 weeks with your local hospital program. (See Cardiac Rehabilitation Discharge Booklet).
SPECIALTY INSTRUCTIONS:
-Weigh yourself daily. Call your physician for any weight gain/loss of 3 lbs overnight or 5 lbs in one week.
-REPORT any clicking noise or uneven appearance of your sternum to your surgeon immediately.
-If you smoke, you are instructed to quit. The [place] smoking hotline phone number is [phone]
Referrals:
CT Transitional Care Nurse [Outside]
Sejal Casas DO [Family Provider]
Alee Dunn CRNP [Specified Professional Personl, Cardiology] - 04/27/25 11:40 am
Berlin Pollard MD [Active, Cardiac Surgery] - 04/16/25 2:30 pm
Additional Discharge Medication Instructions: Please note that your metoprolol dose has changed.
Your omeprazole has been switched to protonix
Your glimepiride is on hold due to your kidney function, please follow up with your PCP about your diabetes management
Prescriptions:
New
acetaminophen 325 mg Tablet
650 mg PO Q4HPRN PRN (Reason: mild pain,headache,temp >101F ) Qty: 0 0RF
clopidogrel 75 mg Tablet
75 mg PO DAILY Qty: 60 0RF
pantoprazole 40 mg Tablet,Delayed Release (Dr/Ec)
40 mg PO DAILY Qty: 30 0RF
oxycodone 5 mg Tablet
2.5 mg PO Q4HPRN PRN (Reason: severe pain) Qty: 10 0RF
dapagliflozin propanediol 10 mg Tablet
10 mg PO DAILY Qty: 60 0RF
Continued
aspirin 81 mg Tablet,Delayed Release (Dr/Ec)
81 mg PO DAILY
cholecalciferol (vitamin D3) [Vitamin D3] 25 mcg (1,000 unit) Capsule
25 mcg PO DAILY
gabapentin 300 mg Capsule
300 mg PO BID
atorvastatin [Lipitor] 80 mg tablet
80 mg PO QPM Qty: 30 5RF
amlodipine 2.5 mg tablet
2.5 mg PO DAILY
furosemide [Lasix] 20 mg tablet
20 mg PO DAILY
Changed
metoprolol succinate 25 mg tablet extended release 24 hr
50 mg PO DAILY Qty: 30 1RF
Held
glimepiride 1 mg Tablet
1 mg PO BID
Hold Instructions: Hold until your renal function improves/ directed by a medical professional
Discontinued
omeprazole 20 mg Tablet,Delayed Release (Dr/Ec)
20 mg PO Q48H
milk thistle 500 mg Capsule
1,000 mg PO DAILY
nitroglycerin 0.4 mg tablet, sublingual
0.4 mg sublingual [id number] PRN (Reason: chest pain) Qty: 25 5RF
Patient Comments:
never taken
Discharge Orders:
Discharge Patient (As Directed); Ordered 03/25/25
Ordered By: Roopa Young
Care Plan Goals
Care Plan Goals:
Problem: Readiness for enhanced knowledge related to diagnosis and treatment plan
Goal: Understand your diagnosis and treatment plan needs, including medications if applicable.
Instructions: Know your diagnosis, underlying causes and treatment plan options, including medications if applicable. Consult with your health care team to learn about your diagnosis and treatment plan, including medications if applicable.
Discharge Date and Time
Print Language: KAZAKH
[2025-03-25 14:20] VITALS: BP 121/68
--- NOTE | 2025-03-25 15:35 | PTCARENOTE ---
PT d/c 03/25/25 PT and verbalized understanding of all instructions, medications, activity restrictions & future appointments. IV and tele pack removed; PT dressed and traveled w/ RN in wheelchair to in awaiting vehicle. Vitals taken and
VSS on monitor.
== END 2025-03-25 16:20 | disposition home or self-care (01) | DRG 236 ==
LOC: CVICU 04:52
PROVIDERS: Anesthesiology; Clinical Nurse Specialist Acute Care; ADMITTING PHYSICIAN Thoracic Surgery (Cardiothoracic Vascular Surgery); CONSULT PHYSICIAN Internal Medicine Critical Care Medicine; FAMILY PHYSICIAN Family Medicine
PROC: 5A1221Z Performance of Cardiac Output, Continuous (ICD-10-PCS; 2025-03-21)
PROC: 06BP4ZZ Excision of Right Saphenous Vein, Percutaneous Endoscopic Approach (ICD-10-PCS; 2025-03-21)
PROC: 02100Z9 Bypass Coronary Artery, One Artery from Left Internal Mammary, Open Approach (ICD-10-PCS; 2025-03-21)
PROC: 02L70CK Occlusion of Left Atrial Appendage with Extraluminal Device, Open Approach (ICD-10-PCS; 2025-03-21)
PROC: B24BZZ4 Ultrasonography of Heart with Aorta, Transesophageal (ICD-10-PCS; 2025-03-21)
PROC: 021309W Bypass Coronary Artery, Four or More Arteries from Aorta with Autologous Venous Tissue, Open Approach (ICD-10-PCS; 2025-03-21)
DX: I25.118 Atherosclerotic heart disease of native coronary artery with other forms of angina pectoris (principal); D62 Acute posthemorrhagic anemia; N17.9 Acute kidney failure, unspecified; J98.11 Atelectasis; I30.8 Other forms of acute pericarditis; N18.31 Chronic kidney disease, stage 3a; E11.22 Type 2 diabetes mellitus with diabetic chronic kidney disease; I12.9 Hypertensive chronic kidney disease with stage 1 through stage 4 chronic kidney disease, or unspecified chronic kidney disease; E78.5 Hyperlipidemia, unspecified; M10.9 Gout, unspecified; K21.9 Gastro-esophageal reflux disease without esophagitis; D69.59 Other secondary thrombocytopenia; E11.65 Type 2 diabetes mellitus with hyperglycemia; M48.061 Spinal stenosis, lumbar region without neurogenic claudication; E87.70 Fluid overload, unspecified; N99.0 Postprocedural (acute) (chronic) kidney failure; E66.811 Obesity, class 1; M47.816 Spondylosis without myelopathy or radiculopathy, lumbar region; E86.1 Hypovolemia; Y83.2 Surgical operation with anastomosis, bypass or graft as the cause of abnormal reaction of the patient, or of later complication, without mention of misadventure at the time of the procedure; Z68.32 Body mass index [BMI] 32.0-32.9, adult; Z79.82 Long term (current) use of aspirin; Z79.84 Long term (current) use of oral hypoglycemic drugs; Z79.899 Other long term (current) drug therapy; Z82.49 Family history of ischemic heart disease and other diseases of the circulatory system
CPT/HCPCS: 36415; 71045; 71046; 80048; 80053; 81003; 81015; 82248; 82330; 82565; 82805; 82947; 82962; 83036; 83735; 84132; 84302; 84520; 85014; 85018; 85025; 85027; 85049; 85610; 85730; 86850; 86900; 86901; 86920; 87070; 93005; 93312; 93320; 93325; 93880; 94002; J2916; P9047